=== PATIENT | male | born 1980 | race Caucasian/White ===

== ENCOUNTER 2017-03-19 19:54 | Inpatient (IN) | payer MEDICAID, OTHER ==
[~2017-03-19] VITALS: Ht 170.2 cm; Wt 68.3 kg
[~2017-03-19 19:54] MED LIST: ALBU8HFA4 IH; ASPI-1093 PO; DIVA500T35 PO; DSS100 PO; OMEP20 PO; QUET200T PO; VITAD1000 PO
[2017-03-19] MEDS ORDERED: DIPH50 PO (20:25)
[2017-03-19] MEDS ORDERED: FLUP5 PO (20:25)
[2017-03-19] MEDS ORDERED: BENZ1TAB10 PO (20:25)
[2017-03-19] MEDS ORDERED: LORazepam 2 MG TABLET PO PRN (21:00)
[2017-03-19] MEDS ORDERED: ZOLPIDEM TARTRATE 10 MG TABLET PO PRN ×2 (21:00)
[2017-03-19 21:10] VITALS: BP 117/77
[2017-03-19 21:44] VITALS: BP 115/88
[2017-03-19] MEDS: QUEtiapine FUMARATE 200 MG TABLET PO SCH (22:08)
[2017-03-19] MEDS ORDERED: -PHARMACY VACCINE NOTE- MISC ONE ×2 (22:15)
[2017-03-19] MEDS ORDERED: ALBUTEROL SULFATE HFA 90 MCG/PUFF 8 GM INHALER IH PRN (23:15)
[2017-03-20 08:25] LABS: BASOPHILS % (AUTO) 0.4 % (0.0-2.0); EOSINOPHILS % (AUTO) 2.7 % (1.0-6.0); HEMATOCRIT 49.4 % (41-53); HEMOGLOBIN 16.9 g/dL (13.5-17.5); LYMPHOCYTES # (AUTO) 2.2 K/uL (1.0-4.8); LYMPHOCYTES % (AUTO) 35.3 % (22.0-44.0); MEAN CORPUSCULAR HEMOGLOBIN 31.6 pg (26.0-34.0); MEAN CORPUSCULAR HGB CONC 34.3 G/dL (31.0-37.0); MEAN CORPUSCULAR VOLUME 92 fL (80-100); MONOCYTES # (AUTO) 0.5 K/uL (0.1-1.0); MONOCYTES % (AUTO) 7.4 % (2.0-9.0); NEUTROPHILS # (AUTO) 3.4 K/uL (1.8-7.7); NEUTROPHILS % (AUTO) 54.2 % (40.0-70.0); PLATELET COUNT (AUTO) 177 K/uL (150-450); RED BLOOD CELL COUNT(AUTO) 5.35 MIL/uL (4.50-5.90); WHITE BLOOD COUNT (AUTO) 6.3 K/uL (4.5-11.0)
[2017-03-20 08:31] VITALS: BP 134/65
[2017-03-20 08:35] LABS: HEMOGLOBIN A1C 5.1 % (4.5-6.2)
[2017-03-20] MEDS: FluPHENAZine HCL 5 MG TABLET PO SCH (08:35)
[2017-03-20] MEDS: DIVALPROEX SODIUM 500 MG DR TABLET PO SCH ×2 (08:35→16:48)
[2017-03-20] MEDS: BENZTROPINE MESYLATE 1 MG TABLET PO SCH (08:35)
[2017-03-20] MEDS: OMEPRAZOLE 20 MG CAPSULE PO SCH (08:35)
[2017-03-20] MEDS: DOCUSATE SODIUM 100 MG CAPSULE PO SCH (08:35)
[2017-03-20] MEDS: ASPIRIN 81 MG CHEWABLE TABLET PO SCH (08:35)
[2017-03-20] MEDS: LORazepam 2 MG TABLET PO PRN (08:36)
[2017-03-20] MEDS: CHOLECALCIFEROL (VIT D3) 1,000 UNITS TABLET PO SCH (08:36)
[2017-03-20 08:51] LABS: ALANINE AMINOTRANSFERASE 13 U/L (12-78); ALBUMIN 3.4 g/dL (3.4-5.0); ANION GAP 10 mmol/L (8-16); ASPARTATE AMINOTRANSFERASE 12 U/L (15-37); BILIRUBIN,TOTAL 0.4 mg/dL (0.1-1.0); CALCIUM, TOTAL 8.4 mg/dL (8.8-10.5); CARBON DIOXIDE 26 mmol/L (22-29); CHLORIDE 110 mmol/L (98-107); CHOL/HDL RATIO 2.3 (4.2-7.3); CREATININE 0.65 mg/dL (0.60-1.30); GLOMERULAR FILTR. RATE CALC > 60 mL/min (>60); POTASSIUM 4.2 mmol/L (3.5-5.1); SODIUM SERUM 146 mmol/L (136-145); THYROID STIMULATING HORMONE 1.64 uIU/mL (0.36-3.74); TOTAL PROTEIN, SERUM 6.3 g/dL (6.4-8.2); UREA NITROGEN, BLOOD 14 mg/dL (7-18); VALPROIC ACID 53 mcg/mL (50-100)
[2017-03-20 16:00] VITALS: BP 124/68
[2017-03-20] MEDS: QUEtiapine FUMARATE 200 MG TABLET PO SCH (20:14)
[2017-03-21 07:06] VITALS: BP 127/71
[2017-03-21 08:10] LABS: POTASSIUM 3.6 mmol/L (3.5-5.1)
[2017-03-21 08:42] VITALS: BP 108/67
[2017-03-21] MEDS: CHOLECALCIFEROL (VIT D3) 1,000 UNITS TABLET PO SCH (09:11)
[2017-03-21] MEDS: FluPHENAZine HCL 5 MG TABLET PO SCH (09:11)
[2017-03-21] MEDS: DOCUSATE SODIUM 100 MG CAPSULE PO SCH (09:12)
[2017-03-21] MEDS: DIVALPROEX SODIUM 500 MG DR TABLET PO SCH ×2 (09:12→16:26)
[2017-03-21] MEDS: OMEPRAZOLE 20 MG CAPSULE PO SCH (09:12)
[2017-03-21] MEDS: ASPIRIN 81 MG CHEWABLE TABLET PO SCH (09:12)
[2017-03-21] MEDS: BENZTROPINE MESYLATE 1 MG TABLET PO SCH (10:08)
[2017-03-21] MEDS: LORazepam 2 MG TABLET PO PRN (13:22)
[2017-03-21 16:04] VITALS: BP 112/73
[2017-03-21] MEDS: QUEtiapine FUMARATE 200 MG TABLET PO SCH (20:05)
[2017-03-22 06:30] VITALS: BP 108/73
[2017-03-22 08:05] VITALS: BP 104/59
[2017-03-22] MEDS: CHOLECALCIFEROL (VIT D3) 1,000 UNITS TABLET PO SCH (08:26)
[2017-03-22] MEDS: DOCUSATE SODIUM 100 MG CAPSULE PO SCH (08:26)
[2017-03-22] MEDS: DIVALPROEX SODIUM 500 MG DR TABLET PO SCH ×2 (08:26→16:14)
[2017-03-22] MEDS: OMEPRAZOLE 20 MG CAPSULE PO SCH (08:26)
[2017-03-22] MEDS: BENZTROPINE MESYLATE 1 MG TABLET PO SCH (08:26)
[2017-03-22] MEDS: ASPIRIN 81 MG CHEWABLE TABLET PO SCH (08:26)
[2017-03-22] MEDS: FluPHENAZine HCL 5 MG TABLET PO SCH (08:26)
[2017-03-22] MEDS: LORazepam 2 MG TABLET PO PRN (14:19)
[2017-03-22 16:00] VITALS: BP 112/70
[2017-03-22] MEDS: QUEtiapine FUMARATE 200 MG TABLET PO SCH (20:43)
[2017-03-23 05:20] VITALS: BP 105/68
[2017-03-23 08:20] VITALS: BP 120/79
[2017-03-23] MEDS: DIVALPROEX SODIUM 500 MG DR TABLET PO SCH ×2 (09:29→16:42)
[2017-03-23] MEDS: OMEPRAZOLE 20 MG CAPSULE PO SCH (09:29)
[2017-03-23] MEDS: FluPHENAZine HCL 5 MG TABLET PO SCH (09:30)
[2017-03-23] MEDS: NICOTINE 21 MG/24 HOUR PATCH TD SCH (09:30)
[2017-03-23] MEDS: ASPIRIN 81 MG CHEWABLE TABLET PO SCH (09:30)
[2017-03-23] MEDS: CHOLECALCIFEROL (VIT D3) 1,000 UNITS TABLET PO SCH (09:30)
[2017-03-23] MEDS: BENZTROPINE MESYLATE 1 MG TABLET PO SCH (09:30)
[2017-03-23] MEDS: DOCUSATE SODIUM 100 MG CAPSULE PO SCH (09:30)
[2017-03-23 16:08] VITALS: BP 116/75
[2017-03-23] MEDS: LORazepam 2 MG TABLET PO PRN (16:42)
[2017-03-23] MEDS: QUEtiapine FUMARATE 200 MG TABLET PO SCH (20:33)
[2017-03-24 05:27] VITALS: BP 119/63
[2017-03-24 08:28] VITALS: BP 113/73
[2017-03-24] MEDS: OMEPRAZOLE 20 MG CAPSULE PO SCH (08:54)
[2017-03-24] MEDS: BENZTROPINE MESYLATE 1 MG TABLET PO SCH (08:54)
[2017-03-24] MEDS: FluPHENAZine HCL 5 MG TABLET PO SCH (08:54)
[2017-03-24] MEDS: NICOTINE 21 MG/24 HOUR PATCH TD SCH (08:54)
[2017-03-24] MEDS: DOCUSATE SODIUM 100 MG CAPSULE PO SCH (08:54)
[2017-03-24] MEDS: CHOLECALCIFEROL (VIT D3) 1,000 UNITS TABLET PO SCH (08:54)
[2017-03-24] MEDS: ASPIRIN 81 MG CHEWABLE TABLET PO SCH (08:54)
[2017-03-24] MEDS: DIVALPROEX SODIUM 500 MG DR TABLET PO SCH (08:54)
== END 2017-03-24 13:00 | disposition home or self-care (01) | DRG 753 ==
LOC: B3A 21:44 → EDSTATUS 21:54
PROVIDERS: ADMIT Psychiatry & Neurology Psychiatry; ATTEND Psychiatry & Neurology Psychiatry
DX: F31.9 Bipolar disorder, unspecified (principal); E87.0 Hyperosmolality and hypernatremia; E55.9 Vitamin D deficiency, unspecified; E83.51 Hypocalcemia; I10 Essential (primary) hypertension; K21.9 Gastro-esophageal reflux disease without esophagitis; G47.00 Insomnia, unspecified; Z72.0 Tobacco use; Q23.9 Congenital malformation of aortic and mitral valves, unspecified
CPT/HCPCS: 82306; 83036; 84132; 84295; 84439; 84443

== ENCOUNTER 2017-04-13 15:42 | Emergency (ER) | payer MEDICAID, OTHER ==
[~2017-04-13] VITALS: Ht 170.2 cm; Wt 68.0 kg
[~2017-04-13 15:42] MED LIST changes: +BENZ1TAB10 PO; +DIPH50 PO; +FLUP5 PO
[2017-04-13] MEDS ORDERED: LORazepam 2 MG TABLET PO ONE (20:00)
[2017-04-13 20:42] VITALS: BP 110/65
== END 2017-04-13 21:07 | disposition home or self-care (01) ==
LOC: EMS 15:44
DX: F41.9 Anxiety disorder, unspecified (principal); F31.9 Bipolar disorder, unspecified; F20.9 Schizophrenia, unspecified; I10 Essential (primary) hypertension; F17.210 Nicotine dependence, cigarettes, uncomplicated; Z79.82 Long term (current) use of aspirin
CPT/HCPCS: 99284

== ENCOUNTER 2018-10-14 16:36 | Inpatient (IN) | payer MEDICAID, OTHER ==
[~2018-10-14] VITALS: Ht 170.2 cm; Wt 79.4 kg
[~2018-10-14 16:36] MED LIST changes: -ASPI-1093 PO; +ASPI-1182 PO; +DIVA-78 PO; -DIVA500T35 PO
[2018-10-14 17:39] LABS: BASOPHILS % (AUTO) 0.4 % (0.0-2.0); EOSINOPHILS % (AUTO) 0.9 % (1.0-6.0); HEMATOCRIT 52.9 % (41-53); HEMOGLOBIN 18.7 g/dL (13.5-17.5); LYMPHOCYTES # (AUTO) 1.9 K/uL (1.0-4.8); LYMPHOCYTES % (AUTO) 21.3 % (22.0-44.0); MEAN CORPUSCULAR HEMOGLOBIN 31.5 pg (26.0-34.0); MEAN CORPUSCULAR HGB CONC 35.4 G/dL (31.0-37.0); MEAN CORPUSCULAR VOLUME 89 fL (80-100); MONOCYTES # (AUTO) 0.6 K/uL (0.1-1.0); MONOCYTES % (AUTO) 6.6 % (2.0-9.0); NEUTROPHILS # (AUTO) 6.3 K/uL (1.8-7.7); NEUTROPHILS % (AUTO) 70.8 % (40.0-70.0); PLATELET COUNT (AUTO) 228 K/uL (150-450); RED BLOOD CELL COUNT(AUTO) 5.94 MIL/uL (4.50-5.90); RED CELL DISTRIBUTION WIDTH 12.9 % (11.5-14.5)
[2018-10-14 18:00] LABS: AMPHET/METH SCREEN,URINE NEGATIVE (NEGATIVE); BARBITURATE SCREEN, URINE NEGATIVE (NEGATIVE); BENZODIAZEPINES SCREEN,URINE NEGATIVE (NEGATIVE); CANNABINOID SCREEN,URINE NEGATIVE (NEGATIVE); COCAINE SCREEN,URINE NEGATIVE (NEGATIVE); METHADONE SCREEN, URINE NEGATIVE (NEGATIVE); OPIATE SCREEN,URINE NEGATIVE (NEGATIVE)
[2018-10-14 18:00] LABS: ANION GAP 14 mmol/L (8-16); CALCIUM, TOTAL 9.3 mg/dL (8.8-10.5); CARBON DIOXIDE 21 mmol/L (22-29); CHLORIDE 105 mmol/L (98-107); CREATININE 0.74 mg/dL (0.60-1.30); GLOMERULAR FILTR. RATE CALC > 60 mL/min (>60); GLUCOSE,RANDOM 110 mg/dL (70-110); POTASSIUM 4.4 mmol/L (3.5-5.1); SODIUM SERUM 140 mmol/L (136-145); UREA NITROGEN, BLOOD 9 mg/dL (7-18)
[2018-10-14 18:03] LABS: PHENCYCLIDINE SCREEN,URINE NEGATIVE (NEGATIVE)
[2018-10-14 18:06] LABS: ALANINE AMINOTRANSFERASE 15 U/L (12-78); ALBUMIN 4.1 g/dL (3.4-5.0); ALKALINE PHOSPHATASE 76 U/L (46-116); ASPARTATE AMINOTRANSFERASE 22 U/L (15-37); BILIRUBIN,TOTAL 0.5 mg/dL (0.1-1.0); TOTAL PROTEIN, SERUM 7.9 g/dL (6.4-8.2)
[2018-10-14] MEDS ORDERED: ZOLPIDEM TARTRATE 10 MG TABLET PO PRN (19:45)
[2018-10-14 20:51] LABS: HEMOGLOBIN A1C 5.1 % (4.5-6.2)
[2018-10-14 20:59] LABS: CHOL/HDL RATIO 2.4 (4.2-7.3); THYROID STIMULATING HORMONE 0.85 uIU/mL (0.36-3.74)
[2018-10-14 21:22] LABS: FREE T4 (FREE THYROXINE) 1.1 ng/dL (0.76-1.46)
[2018-10-14 21:35] VITALS: BP 130/91
[2018-10-15 10:50] VITALS: BP 131/78
[2018-10-15] MEDS: NICOTINE 21 MG/24 HOUR PATCH TD SCH (13:23)
[2018-10-15 16:48] VITALS: BP 123/81
[2018-10-15] MEDS: QUEtiapine FUMARATE 200 MG TABLET PO SCH (20:35)
[2018-10-15] MEDS ORDERED: BENZOCAINE/MENTHOL LOZENGE MM PRN (23:00)
[2018-10-15] MEDS ORDERED: MAG HYDROX/AL HYDROX/SIMETH ES 30 ML SUSPENSION UDCUP PO PRN (23:00)
[2018-10-15] MEDS ORDERED: MAGNESIUM HYDROXIDE SUSPENSION 30 ML UDCUP PO PRN (23:00)
[2018-10-15] MEDS ORDERED: IBUPROFEN 600 MG TABLET PO PRN (23:00)
[2018-10-15] MEDS ORDERED: ONDANSETRON HCL 4 MG TABLET PO PRN (23:00)
[2018-10-15] MEDS ORDERED: ACETAMINOPHEN 325 MG TABLET PO PRN (23:00)
[2018-10-15] MEDS ORDERED: PETROLATUM,WHITE 71 GM JELLY TP PRN (23:00)
[2018-10-15] MEDS ORDERED: CloNIDine HCL 0.1 MG TABLET PO PRN (23:00)
[2018-10-15] MEDS ORDERED: BACITRACIN 28.4 GM OINTMENT TP PRN (23:00)
[2018-10-15] MEDS ORDERED: LOPERAMIDE HCL 2 MG CAPSULE PO PRN (23:00)
[2018-10-15] MEDS ORDERED: ALBUTEROL SULFATE HFA 90 MCG/PUFF 8 GM INHALER IH PRN (23:00)
[2018-10-16] MEDS: CHOLECALCIFEROL (VIT D3) 1,000 UNITS TABLET PO SCH (09:00)
[2018-10-16] MEDS: DIVALPROEX SODIUM 500 MG DR TABLET PO SCH ×2 (09:00→16:54)
[2018-10-16] MEDS: OMEPRAZOLE 20 MG CAPSULE PO SCH (09:00)
[2018-10-16] MEDS: ASPIRIN 81 MG EC TABLET PO SCH (09:00)
[2018-10-16] MEDS: NICOTINE 21 MG/24 HOUR PATCH TD SCH (09:00)
[2018-10-16] MEDS: DOCUSATE SODIUM 100 MG CAPSULE PO SCH (09:00)
[2018-10-16 10:44] VITALS: BP 120/70
[2018-10-16 20:38] VITALS: BP 125/72
[2018-10-16] MEDS: QUEtiapine FUMARATE 200 MG TABLET PO SCH (20:39)
[2018-10-17 03:00] VITALS: BP 121/67
[2018-10-17] MEDS: DOCUSATE SODIUM 100 MG CAPSULE PO SCH (09:30)
[2018-10-17] MEDS: OMEPRAZOLE 20 MG CAPSULE PO SCH (09:30)
[2018-10-17] MEDS: CHOLECALCIFEROL (VIT D3) 1,000 UNITS TABLET PO SCH (09:30)
[2018-10-17] MEDS: ASPIRIN 81 MG EC TABLET PO SCH (09:30)
[2018-10-17] MEDS: NICOTINE 21 MG/24 HOUR PATCH TD SCH (09:32)
[2018-10-17] MEDS: DIVALPROEX SODIUM 500 MG DR TABLET PO SCH ×2 (09:33→16:05)
[2018-10-17 09:59] VITALS: BP 118/68
[2018-10-17 19:55] VITALS: BP 133/82
[2018-10-17] MEDS: QUEtiapine FUMARATE 200 MG TABLET PO SCH (20:32)
[2018-10-18] MEDS: LORazepam 2 MG TABLET PO PRN (08:48)
[2018-10-18] MEDS: HALOPERIDOL 5 MG TABLET PO PRN (08:48)
[2018-10-18] MEDS: ASPIRIN 81 MG EC TABLET PO SCH (08:52)
[2018-10-18] MEDS: CHOLECALCIFEROL (VIT D3) 1,000 UNITS TABLET PO SCH (08:52)
[2018-10-18] MEDS: DIVALPROEX SODIUM 500 MG DR TABLET PO SCH ×2 (08:52→16:44)
[2018-10-18] MEDS: OMEPRAZOLE 20 MG CAPSULE PO SCH (08:52)
[2018-10-18] MEDS: DOCUSATE SODIUM 100 MG CAPSULE PO SCH (08:52)
[2018-10-18] MEDS: NICOTINE 21 MG/24 HOUR PATCH TD SCH (09:03)
[2018-10-18 10:39] VITALS: BP 101/84
[2018-10-18] MEDS: QUEtiapine FUMARATE 200 MG TABLET PO SCH (20:05)
[2018-10-18 21:39] VITALS: BP 111/72
[2018-10-19] MEDS: ASPIRIN 81 MG EC TABLET PO SCH (09:08)
[2018-10-19] MEDS: OMEPRAZOLE 20 MG CAPSULE PO SCH (09:08)
[2018-10-19] MEDS: DIVALPROEX SODIUM 500 MG DR TABLET PO SCH ×2 (09:08→16:27)
[2018-10-19] MEDS: DOCUSATE SODIUM 100 MG CAPSULE PO SCH (09:09)
[2018-10-19] MEDS: CHOLECALCIFEROL (VIT D3) 1,000 UNITS TABLET PO SCH (09:09)
[2018-10-19] MEDS: NICOTINE 21 MG/24 HOUR PATCH TD SCH (09:10)
[2018-10-19 13:50] VITALS: BP 117/89
[2018-10-19 17:35] VITALS: BP 120/67
[2018-10-19] MEDS: LORazepam 2 MG TABLET PO PRN (20:27)
[2018-10-19] MEDS: QUEtiapine FUMARATE 200 MG TABLET PO SCH (20:27)
[2018-10-19] MEDS: HALOPERIDOL 5 MG TABLET PO PRN (20:27)
[2018-10-20 08:00] VITALS: BP 120/81
[2018-10-20] MEDS: DOCUSATE SODIUM 100 MG CAPSULE PO SCH (10:01)
[2018-10-20] MEDS: CHOLECALCIFEROL (VIT D3) 1,000 UNITS TABLET PO SCH (10:02)
[2018-10-20] MEDS: DIVALPROEX SODIUM 500 MG DR TABLET PO SCH ×2 (10:02→16:40)
[2018-10-20] MEDS: OMEPRAZOLE 20 MG CAPSULE PO SCH (10:02)
[2018-10-20] MEDS: ASPIRIN 81 MG EC TABLET PO SCH (10:03)
[2018-10-20] MEDS: NICOTINE 21 MG/24 HOUR PATCH TD SCH (10:05)
[2018-10-20] MEDS: HALOPERIDOL 5 MG TABLET PO PRN (16:41)
[2018-10-20] MEDS: LORazepam 2 MG TABLET PO PRN (16:41)
[2018-10-20 19:25] VITALS: BP 125/75
[2018-10-20] MEDS: QUEtiapine FUMARATE 200 MG TABLET PO SCH (20:24)
[2018-10-21] MEDS: DOCUSATE SODIUM 100 MG CAPSULE PO SCH (08:48)
[2018-10-21] MEDS: NICOTINE 21 MG/24 HOUR PATCH TD SCH (08:48)
[2018-10-21] MEDS: ASPIRIN 81 MG EC TABLET PO SCH (08:48)
[2018-10-21] MEDS: DIVALPROEX SODIUM 500 MG DR TABLET PO SCH (08:48)
[2018-10-21] MEDS: OMEPRAZOLE 20 MG CAPSULE PO SCH (08:48)
[2018-10-21] MEDS: CHOLECALCIFEROL (VIT D3) 1,000 UNITS TABLET PO SCH (08:48)
[2018-10-21] MEDS: LORazepam 2 MG TABLET PO PRN (08:49)
[2018-10-21 10:13] VITALS: BP 117/79
== END 2018-10-21 14:30 | disposition home or self-care (01) | DRG 750 ==
LOC: EMS 16:37 → 3EI 20:20
PROVIDERS: ADMIT Psychiatry & Neurology Psychiatry; ATTEND Psychiatry & Neurology Psychiatry
DX: F25.9 Schizoaffective disorder, unspecified (principal); F17.210 Nicotine dependence, cigarettes, uncomplicated; F41.9 Anxiety disorder, unspecified; I10 Essential (primary) hypertension; Z79.82 Long term (current) use of aspirin; Z56.0 Unemployment, unspecified; Z79.899 Other long term (current) drug therapy
CPT/HCPCS: 83036; 84439; 84443; 99406; G0480

== ENCOUNTER 2019-09-03 15:35 | Inpatient (IN) | payer MEDICAID, OTHER ==
[~2019-09-03] VITALS: Ht 170.2 cm; Wt 80.7 kg
[~2019-09-03 15:35] MED LIST changes: -ALBU8HFA4 IH; -BENZ1TAB10 PO; +CHOL100018 PO; -DIPH50 PO; -FLUP5 PO; -VITAD1000 PO
[2019-09-03] MEDS ORDERED: LORazepam 2 MG TABLET PO ONE (16:15)
[2019-09-03] MEDS ORDERED: HALOPERIDOL 5 MG TABLET PO ONE (16:15)
[2019-09-03 16:21] LABS: BASOPHILS % (AUTO) 0.2 % (0.0-2.0); EOSINOPHILS % (AUTO) 1.2 % (1.0-6.0); HEMOGLOBIN 18.1 g/dL (13.5-17.5); LYMPHOCYTES # (AUTO) 1.4 K/uL (1.0-4.8); LYMPHOCYTES % (AUTO) 17.1 % (22.0-44.0); MEAN CORPUSCULAR HEMOGLOBIN 31.7 pg (26.0-34.0); MEAN CORPUSCULAR HGB CONC 34.8 G/dL (31.0-37.0); MEAN CORPUSCULAR VOLUME 91 fL (80-100); MONOCYTES # (AUTO) 0.4 K/uL (0.1-1.0); MONOCYTES % (AUTO) 5.2 % (2.0-9.0); NEUTROPHILS # (AUTO) 6.1 K/uL (1.8-7.7); NEUTROPHILS % (AUTO) 76.3 % (40.0-70.0); PLATELET COUNT (AUTO) 198 K/uL (150-450); RED BLOOD CELL COUNT(AUTO) 5.72 MIL/uL (4.50-5.90); RED CELL DISTRIBUTION WIDTH 12.8 % (11.5-14.5)
[2019-09-03 16:28] LABS: ANION GAP 8 mmol/L (8-16); CALCIUM, TOTAL 8.7 mg/dL (8.8-10.5); CARBON DIOXIDE 28 mmol/L (22-29); CHLORIDE 105 mmol/L (98-107); CREATININE 0.94 mg/dL (0.60-1.30); GLOMERULAR FILTR. RATE CALC > 60 mL/min (>60); GLUCOSE,RANDOM 107 mg/dL (70-110); SODIUM SERUM 141 mmol/L (136-145); UREA NITROGEN, BLOOD 9 mg/dL (7-18)
[2019-09-03 16:34] LABS: ALANINE AMINOTRANSFERASE 12 U/L (12-78); ALKALINE PHOSPHATASE 69 U/L (46-116); ASPARTATE AMINOTRANSFERASE 21 U/L (15-37); BILIRUBIN,TOTAL 0.4 mg/dL (0.1-1.0); TOTAL PROTEIN, SERUM 7.5 g/dL (6.4-8.2)
[2019-09-03 16:50] LABS: VALPROIC ACID < 3 mcg/mL (50-100)
[2019-09-03 17:20] LABS: AMPHET/METH SCREEN,URINE NEGATIVE (NEGATIVE); BARBITURATE SCREEN, URINE NEGATIVE (NEGATIVE); BENZODIAZEPINES SCREEN,URINE NEGATIVE (NEGATIVE); CANNABINOID SCREEN,URINE NEGATIVE (NEGATIVE); COCAINE SCREEN,URINE NEGATIVE (NEGATIVE); METHADONE SCREEN, URINE NEGATIVE (NEGATIVE); OPIATE SCREEN,URINE NEGATIVE (NEGATIVE)
[2019-09-03 17:23] LABS: PHENCYCLIDINE SCREEN,URINE NEGATIVE (NEGATIVE)
[2019-09-03] MEDS ORDERED: ZOLPIDEM TARTRATE 10 MG TABLET PO PRN (17:45)
[2019-09-03] MEDS: DIVALPROEX SODIUM 500 MG DR TABLET PO SCH (19:50)
[2019-09-03 21:05] VITALS: BP 128/75
[2019-09-03] MEDS: QUEtiapine FUMARATE 200 MG TABLET PO SCH (21:09)
[2019-09-04 08:12] VITALS: BP 97/60
[2019-09-04] MEDS: DIVALPROEX SODIUM 500 MG DR TABLET PO SCH ×2 (09:07→16:47)
[2019-09-04] MEDS: LORazepam 2 MG TABLET PO PRN (14:28)
[2019-09-04] MEDS: HALOPERIDOL 5 MG TABLET PO PRN (14:28)
[2019-09-04 19:33] VITALS: BP 137/84
[2019-09-04] MEDS: QUEtiapine FUMARATE 200 MG TABLET PO SCH (20:23)
[2019-09-04] MEDS ORDERED: MAG HYDROX/AL HYDROX/SIMETH ES 30 ML SUSPENSION UDCUP PO PRN (21:15)
[2019-09-04] MEDS ORDERED: MAGNESIUM HYDROXIDE SUSPENSION 30 ML UDCUP PO PRN (21:15)
[2019-09-04] MEDS ORDERED: PETROLATUM,WHITE 28 GM JELLY TP PRN (21:15)
[2019-09-04] MEDS ORDERED: BENZOCAINE/MENTHOL LOZENGE MM PRN (21:15)
[2019-09-04] MEDS ORDERED: ALBUTEROL SULFATE HFA 90 MCG/PUFF 8 GM INHALER IH PRN (21:15)
[2019-09-04] MEDS ORDERED: LOPERAMIDE HCL 2 MG CAPSULE PO PRN (21:15)
[2019-09-04] MEDS ORDERED: DOCUSATE SODIUM 100 MG CAPSULE PO PRN (21:15)
[2019-09-04] MEDS ORDERED: IBUPROFEN 600 MG TABLET PO PRN (21:15)
[2019-09-04] MEDS ORDERED: ONDANSETRON HCL 4 MG TABLET PO PRN (21:15)
[2019-09-04] MEDS ORDERED: OMEPRAZOLE 20 MG CAPSULE PO PRN (21:15)
[2019-09-04] MEDS ORDERED: ACETAMINOPHEN 325 MG TABLET PO PRN (21:15)
[2019-09-04] MEDS ORDERED: BACITRACIN 28.4 GM OINTMENT TP PRN (21:15)
[2019-09-04] MEDS ORDERED: CloNIDine HCL 0.1 MG TABLET PO PRN (21:15)
[2019-09-05] MEDS: ASPIRIN 81 MG EC TABLET PO SCH (09:43)
[2019-09-05] MEDS: DIVALPROEX SODIUM 500 MG DR TABLET PO SCH ×2 (09:43→17:15)
[2019-09-05] MEDS: CHOLECALCIFEROL (VIT D3) 1,000 UNITS TABLET PO SCH (09:44)
[2019-09-05 10:00] VITALS: BP 112/54
[2019-09-05] MEDS: LORazepam 2 MG TABLET PO PRN (13:16)
[2019-09-05] MEDS: HALOPERIDOL 5 MG TABLET PO PRN (13:16)
[2019-09-05 16:30] VITALS: BP 119/63
[2019-09-05] MEDS: QUEtiapine FUMARATE 200 MG TABLET PO SCH (20:19)
[2019-09-06] MEDS: LORazepam 2 MG TABLET PO PRN ×2 (07:48→18:27)
[2019-09-06] MEDS: CHOLECALCIFEROL (VIT D3) 1,000 UNITS TABLET PO SCH (07:48)
[2019-09-06] MEDS: DIVALPROEX SODIUM 500 MG DR TABLET PO SCH ×2 (07:48→16:38)
[2019-09-06] MEDS: HALOPERIDOL 5 MG TABLET PO PRN ×2 (07:48→18:27)
[2019-09-06] MEDS: ASPIRIN 81 MG EC TABLET PO SCH (07:49)
[2019-09-06 10:36] VITALS: BP 107/76
[2019-09-06 17:56] VITALS: BP 111/63
[2019-09-06] MEDS: QUEtiapine FUMARATE 200 MG TABLET PO SCH (20:53)
[2019-09-07] MEDS: CHOLECALCIFEROL (VIT D3) 1,000 UNITS TABLET PO SCH (07:44)
[2019-09-07] MEDS: ASPIRIN 81 MG EC TABLET PO SCH (07:44)
[2019-09-07] MEDS: DIVALPROEX SODIUM 500 MG DR TABLET PO SCH ×2 (07:44→17:33)
[2019-09-07] MEDS: LORazepam 2 MG TABLET PO PRN (07:45)
[2019-09-07] MEDS: HALOPERIDOL 5 MG TABLET PO PRN (07:45)
[2019-09-07 08:02] VITALS: BP 110/84
[2019-09-07 16:00] VITALS: BP 114/81
[2019-09-07] MEDS: QUEtiapine FUMARATE 200 MG TABLET PO SCH (21:10)
[2019-09-08] MEDS: ASPIRIN 81 MG EC TABLET PO SCH (09:28)
[2019-09-08] MEDS: LORazepam 2 MG TABLET PO PRN (09:28)
[2019-09-08] MEDS: CHOLECALCIFEROL (VIT D3) 1,000 UNITS TABLET PO SCH (09:28)
[2019-09-08] MEDS: DIVALPROEX SODIUM 500 MG DR TABLET PO SCH ×2 (09:28→17:28)
[2019-09-08 10:06] VITALS: BP 120/86
[2019-09-08 16:38] VITALS: BP 109/79
[2019-09-08] MEDS: QUEtiapine FUMARATE 200 MG TABLET PO SCH (21:14)
[2019-09-09 08:45] VITALS: BP 122/85
[2019-09-09] MEDS: DIVALPROEX SODIUM 500 MG DR TABLET PO SCH ×2 (09:22→16:15)
[2019-09-09] MEDS: LORazepam 2 MG TABLET PO PRN ×2 (09:22→18:08)
[2019-09-09] MEDS: ASPIRIN 81 MG EC TABLET PO SCH (09:23)
[2019-09-09] MEDS: CHOLECALCIFEROL (VIT D3) 1,000 UNITS TABLET PO SCH (09:23)
[2019-09-09 17:01] VITALS: BP 113/77
[2019-09-09] MEDS ORDERED: NICOTINE 14 MG/24 HOUR PATCH TD ONE (20:00)
[2019-09-09] MEDS: QUEtiapine FUMARATE 200 MG TABLET PO SCH (20:23)
[2019-09-10 08:00] VITALS: BP 121/89
[2019-09-10] MEDS: CHOLECALCIFEROL (VIT D3) 1,000 UNITS TABLET PO SCH (08:01)
[2019-09-10] MEDS: LORazepam 2 MG TABLET PO PRN ×3 (08:01→16:30)
[2019-09-10] MEDS: DIVALPROEX SODIUM 500 MG DR TABLET PO SCH ×2 (08:01→16:15)
[2019-09-10] MEDS: ASPIRIN 81 MG EC TABLET PO SCH (08:01)
[2019-09-10] MEDS: NICOTINE 14 MG/24 HOUR PATCH TD SCH (08:06)
[2019-09-10] MEDS: HALOPERIDOL 5 MG TABLET PO PRN ×3 (12:32→21:30)
[2019-09-10 17:25] VITALS: BP 138/67
[2019-09-10] MEDS: QUEtiapine FUMARATE 200 MG TABLET PO SCH (20:20)
[2019-09-11 08:25] VITALS: BP 134/68
[2019-09-11] MEDS: ASPIRIN 81 MG EC TABLET PO SCH (10:29)
[2019-09-11] MEDS: DIVALPROEX SODIUM 500 MG DR TABLET PO SCH ×2 (10:29→16:59)
[2019-09-11] MEDS: CHOLECALCIFEROL (VIT D3) 1,000 UNITS TABLET PO SCH (10:29)
[2019-09-11] MEDS: NICOTINE 14 MG/24 HOUR PATCH TD SCH (10:30)
[2019-09-11 16:13] VITALS: BP 150/84
[2019-09-11] MEDS: QUEtiapine FUMARATE 200 MG TABLET PO SCH (21:03)
[2019-09-12] MEDS: NICOTINE 14 MG/24 HOUR PATCH TD SCH (08:12)
[2019-09-12] MEDS: LORazepam 2 MG TABLET PO PRN (08:13)
[2019-09-12] MEDS: ASPIRIN 81 MG EC TABLET PO SCH (08:13)
[2019-09-12] MEDS: DIVALPROEX SODIUM 500 MG DR TABLET PO SCH (08:13)
[2019-09-12] MEDS: CHOLECALCIFEROL (VIT D3) 1,000 UNITS TABLET PO SCH (08:13)
[2019-09-12 09:36] VITALS: BP 108/82
[2019-09-12] MEDS ORDERED: BENZ1TAB10 PO (12:00)
[2019-09-12] MEDS ORDERED: FLUP10 PO (12:00)
[2019-09-12] MEDS ORDERED: DIVA-78 PO (12:00)
[2019-09-12] MEDS ORDERED: CHOL100018 PO (13:59)
[2019-09-12] MEDS ORDERED: ASPI-1182 PO (14:06)
[2019-09-12] MEDS ORDERED: FluPHENAZine HCL 1 MG TABLET PO SCH (17:00)
[2019-09-12] MEDS ORDERED: BENZTROPINE MESYLATE 1 MG TABLET PO SCH (17:00)
[2019-09-12] MEDS ORDERED: DIVALPROEX SODIUM 500 MG DR TABLET PO SCH (21:00)
[2019-09-12] MEDS ORDERED: FluPHENAZine HCL 10 MG TABLET PO SCH (21:00)
[2019-09-13] MEDS ORDERED: DIVALPROEX SODIUM 500 MG DR TABLET PO SCH (09:00)
== END 2019-09-12 21:36 | disposition home or self-care (01) | DRG 885 ==
LOC: EMS 15:38 → 3EC 18:34
PROVIDERS: ADMIT Psychiatry & Neurology Psychiatry; ATTEND Psychiatry & Neurology Psychiatry
DX: F25.9 Schizoaffective disorder, unspecified (principal); F17.200 Nicotine dependence, unspecified, uncomplicated; F31.9 Bipolar disorder, unspecified; F41.9 Anxiety disorder, unspecified; F60.0 Paranoid personality disorder; G47.00 Insomnia, unspecified; I10 Essential (primary) hypertension; Z56.0 Unemployment, unspecified; Z71.6 Tobacco abuse counseling
CPT/HCPCS: G0480

== ENCOUNTER 2020-03-08 11:09 | Emergency (ER) | payer MEDICAID, OTHER ==
[~2020-03-08] VITALS: Ht 170.2 cm; Wt 68.2 kg
[~2020-03-08 11:09] MED LIST changes: +ASPI-1111 PO; -ASPI-1182 PO; +BENZ1TAB10 PO; -DSS100 PO; +FLUP10 PO; -OMEP20 PO
[2020-03-08] MEDS ORDERED: DIPH50CA35 PO (11:13)
[2020-03-08 12:21] LABS: BASOPHILS % (AUTO) 0.4 % (0.0-2.0); EOSINOPHILS % (AUTO) 0.8 % (1.0-6.0); HEMATOCRIT 50.4 % (41-53); LYMPHOCYTES # (AUTO) 1.2 K/uL (1.0-4.8); LYMPHOCYTES % (AUTO) 16.9 % (22.0-44.0); MEAN CORPUSCULAR HEMOGLOBIN 31.8 pg (26.0-34.0); MEAN CORPUSCULAR HGB CONC 35.6 G/dL (31.0-37.0); MEAN CORPUSCULAR VOLUME 89 fL (80-100); MONOCYTES # (AUTO) 0.4 K/uL (0.1-1.0); MONOCYTES % (AUTO) 5.5 % (2.0-9.0); NEUTROPHILS # (AUTO) 5.6 K/uL (1.8-7.7); NEUTROPHILS % (AUTO) 76.4 % (40.0-70.0); PLATELET COUNT (AUTO) 180 K/uL (150-450); RED BLOOD CELL COUNT(AUTO) 5.65 MIL/uL (4.50-5.90); RED CELL DISTRIBUTION WIDTH 12.6 % (11.5-14.5)
[2020-03-08 12:39] LABS: ANION GAP 15 mmol/L (8-16); CALCIUM, TOTAL 8.8 mg/dL (8.8-10.5); CARBON DIOXIDE 21 mmol/L (22-29); CHLORIDE 105 mmol/L (98-107); CREATININE 0.88 mg/dL (0.60-1.30); GLOMERULAR FILTR. RATE CALC > 60 mL/min (>60); GLUCOSE,RANDOM 140 mg/dL (70-110); POTASSIUM 3.7 mmol/L (3.5-5.1); SODIUM SERUM 141 mmol/L (136-145); UREA NITROGEN, BLOOD 10 mg/dL (7-18)
[2020-03-08 12:45] LABS: ALANINE AMINOTRANSFERASE 16 U/L (12-78); ALBUMIN 4.1 g/dL (3.4-5.0); ALKALINE PHOSPHATASE 70 U/L (46-116); ASPARTATE AMINOTRANSFERASE 15 U/L (15-37); BILIRUBIN,TOTAL 0.5 mg/dL (0.1-1.0); TOTAL PROTEIN, SERUM 7.7 g/dL (6.4-8.2)
[2020-03-08 13:41] VITALS: BP 132/77
== END 2020-03-08 13:43 | disposition home or self-care (01) ==
LOC: EMS 11:10
DX: F81.9 Developmental disorder of scholastic skills, unspecified (principal); F69 Unspecified disorder of adult personality and behavior; F17.210 Nicotine dependence, cigarettes, uncomplicated; F41.9 Anxiety disorder, unspecified; F31.9 Bipolar disorder, unspecified; F20.9 Schizophrenia, unspecified; I10 Essential (primary) hypertension; Z79.82 Long term (current) use of aspirin
CPT/HCPCS: 36415; 80053; 85025; 99283; G0480

== ENCOUNTER 2022-04-02 12:24 | Inpatient (IN) | payer MEDICAID, OTHER ==
[~2022-04-02] VITALS: Ht 170.2 cm; Wt 72.1 kg
[~2022-04-02 12:24] MED LIST changes: -ASPI-1111 PO; +ASPI-1444 PO; -BENZ1TAB10 PO; +BENZ1TAB96 PO; -CHOL100018 PO; +CHOL25TA4 PO; +DIPH50CA35 PO; +DIVA-112 PO; -DIVA-78 PO; -FLUP10 PO
[2022-04-02 12:58] LABS: BASOPHILS % (AUTO) 0.3 % (0.0-2.0); EOSINOPHILS % (AUTO) 1.2 % (1.0-6.0); HEMATOCRIT 49.6 % (41-53); HEMOGLOBIN 17.3 g/dL (13.5-17.5); MEAN CORPUSCULAR HEMOGLOBIN 31.5 pg (26.0-34.0); MEAN CORPUSCULAR HGB CONC 34.8 G/dL (31.0-37.0); MEAN CORPUSCULAR VOLUME 90 fL (80-100); MONOCYTES # (AUTO) 0.5 K/uL (0.1-1.0); MONOCYTES % (AUTO) 6.5 % (2.0-9.0); NEUTROPHILS # (AUTO) 4.5 K/uL (1.8-7.7); PLATELET COUNT (AUTO) 200 K/uL (150-450); RED BLOOD CELL COUNT(AUTO) 5.49 MIL/uL (4.50-5.90); RED CELL DISTRIBUTION WIDTH 12.9 % (11.5-14.5)
[2022-04-02 13:07] LABS: ANION GAP 10 mmol/L (8-16); CALCIUM, TOTAL 9.1 mg/dL (8.8-10.5); CARBON DIOXIDE 24 mmol/L (22-29); CHLORIDE 106 mmol/L (98-107); CREATININE 0.71 mg/dL (0.60-1.30); GLOMERULAR FILTR. RATE CALC > 60 mL/min (>60); GLUCOSE,RANDOM 137 mg/dL (70-110); POTASSIUM 3.5 mmol/L (3.5-5.1); SODIUM SERUM 140 mmol/L (136-145); UREA NITROGEN, BLOOD 10 mg/dL (7-18)
[2022-04-02 13:14] LABS: ALANINE AMINOTRANSFERASE 19 U/L (12-78); ALKALINE PHOSPHATASE 73 U/L (46-116); ASPARTATE AMINOTRANSFERASE 14 U/L (15-37); BILIRUBIN,TOTAL 0.6 mg/dL (0.1-1.0); TOTAL PROTEIN, SERUM 7.1 g/dL (6.4-8.2); VALPROIC ACID < 3 mcg/mL (50-100)
[2022-04-02 13:43] LABS: AMPHET/METH SCREEN,URINE NEGATIVE (NEGATIVE); BARBITURATE SCREEN, URINE NEGATIVE (NEGATIVE); BENZODIAZEPINES SCREEN,URINE NEGATIVE (NEGATIVE); CANNABINOID SCREEN,URINE NEGATIVE (NEGATIVE); COCAINE SCREEN,URINE NEGATIVE (NEGATIVE); METHADONE SCREEN, URINE NEGATIVE (NEGATIVE); OPIATE SCREEN,URINE NEGATIVE (NEGATIVE)
[2022-04-02 13:45] LABS: PHENCYCLIDINE SCREEN,URINE NEGATIVE (NEGATIVE)
[2022-04-02] MEDS ORDERED: ZOLPIDEM TARTRATE 10 MG TABLET PO PRN (14:30)
[2022-04-02] MEDS ORDERED: LORazepam 1 MG TABLET PO ONE (14:30)
[2022-04-02 15:19] LABS: COVID AG,FIA SOURCE NASOPHARYNGEAL
[2022-04-02] MEDS: LORazepam 2 MG TABLET PO PRN (20:52)
[2022-04-02] MEDS ORDERED: ONDANSETRON HCL 4 MG TABLET PO ONE (21:00)
[2022-04-02] MEDS: HALOPERIDOL 5 MG TABLET PO PRN (21:02)
[2022-04-02 22:29] VITALS: BP 132/84
[2022-04-03 08:34] VITALS: BP 118/82
[2022-04-03] MEDS: LORazepam 2 MG TABLET PO PRN ×2 (12:08→15:58)
[2022-04-03] MEDS: HALOPERIDOL 5 MG TABLET PO PRN (15:58)
[2022-04-03 16:05] VITALS: BP 97/67
[2022-04-03] MEDS: DIVALPROEX SODIUM 250 MG DR TABLET PO SCH (17:51)
[2022-04-03] MEDS: FluPHENAZine HCL 5 MG TABLET PO SCH (21:02)
[2022-04-03] MEDS: BENZTROPINE MESYLATE 2 MG TABLET PO SCH (21:02)
[2022-04-03] MEDS ORDERED: BENZOCAINE/MENTHOL LOZENGE PO PRN (21:15)
[2022-04-03] MEDS ORDERED: OMEPRAZOLE 20 MG CAPSULE PO PRN (21:15)
[2022-04-03] MEDS ORDERED: LOPERAMIDE HCL 2 MG CAPSULE PO PRN (21:15)
[2022-04-03] MEDS ORDERED: DOCUSATE SODIUM 100 MG CAPSULE PO PRN (21:15)
[2022-04-03] MEDS ORDERED: MAG HYDROX/AL HYDROX/SIMETH ES 30 ML SUSPENSION UDCUP PO PRN (21:15)
[2022-04-03] MEDS ORDERED: BACITRACIN 28 GM OINTMENT TP PRN (21:15)
[2022-04-03] MEDS ORDERED: MAGNESIUM HYDROXIDE SUSPENSION 30 ML UDCUP PO PRN (21:15)
[2022-04-03] MEDS ORDERED: PETROLATUM,WHITE 28 GM JELLY TP PRN (21:15)
[2022-04-03] MEDS ORDERED: ACETAMINOPHEN 325 MG TABLET PO PRN (21:15)
[2022-04-03] MEDS ORDERED: ONDANSETRON HCL 4 MG TABLET PO PRN (21:15)
[2022-04-03] MEDS ORDERED: CloNIDine HCL 0.1 MG TABLET PO PRN (21:15)
[2022-04-03] MEDS ORDERED: ALBUTEROL SULFATE HFA 90 MCG/PUFF 8 GM INHALER IH PRN (21:15)
[2022-04-03] MEDS ORDERED: IBUPROFEN 600 MG TABLET PO PRN (21:15)
[2022-04-04 08:15] VITALS: BP 109/70
[2022-04-04 08:27] LABS: CHOL/HDL RATIO 2.5 (4.2-7.3)
[2022-04-04] MEDS: CHOLECALCIFEROL (VIT D3) 1,000 UNITS [25 MCG] TABLET PO SCH (09:15)
[2022-04-04] MEDS: ASPIRIN 81 MG DR TABLET PO SCH (09:15)
[2022-04-04] MEDS: DIVALPROEX SODIUM 250 MG DR TABLET PO SCH ×2 (09:16→16:22)
[2022-04-04] MEDS: HALOPERIDOL 5 MG TABLET PO PRN ×2 (15:43→20:31)
[2022-04-04 16:33] VITALS: BP 110/71
[2022-04-04] MEDS: FluPHENAZine HCL 5 MG TABLET PO SCH (21:16)
[2022-04-04] MEDS: BENZTROPINE MESYLATE 2 MG TABLET PO SCH (21:16)
[2022-04-05 00:33] VITALS: BP 115/79
[2022-04-05 08:00] VITALS: BP 116/74
[2022-04-05] MEDS: DIVALPROEX SODIUM 250 MG DR TABLET PO SCH ×2 (09:07→17:46)
[2022-04-05] MEDS: ASPIRIN 81 MG DR TABLET PO SCH (09:07)
[2022-04-05] MEDS: CHOLECALCIFEROL (VIT D3) 1,000 UNITS [25 MCG] TABLET PO SCH (09:09)
[2022-04-05] MEDS: HALOPERIDOL 5 MG TABLET PO PRN ×2 (15:44→20:35)
[2022-04-05 16:08] VITALS: BP 108/66
[2022-04-05] MEDS: LORazepam 2 MG TABLET PO PRN (17:46)
[2022-04-05] MEDS: BENZTROPINE MESYLATE 2 MG TABLET PO SCH (20:35)
[2022-04-05] MEDS: FluPHENAZine HCL 5 MG TABLET PO SCH (20:35)
[2022-04-06] MEDS: ASPIRIN 81 MG DR TABLET PO SCH (09:07)
[2022-04-06] MEDS: CHOLECALCIFEROL (VIT D3) 1,000 UNITS [25 MCG] TABLET PO SCH (09:07)
[2022-04-06] MEDS: DIVALPROEX SODIUM 250 MG DR TABLET PO SCH ×2 (09:08→16:14)
[2022-04-06 09:22] VITALS: BP 132/76
[2022-04-06 16:00] VITALS: BP 140/78
[2022-04-06] MEDS: HALOPERIDOL 5 MG TABLET PO PRN ×2 (16:14→20:36)
[2022-04-06] MEDS: LORazepam 2 MG TABLET PO PRN (17:22)
[2022-04-06] MEDS: BENZTROPINE MESYLATE 2 MG TABLET PO SCH (20:36)
[2022-04-06] MEDS: FluPHENAZine HCL 5 MG TABLET PO SCH (20:36)
[2022-04-07] MEDS: ASPIRIN 81 MG DR TABLET PO SCH (09:26)
[2022-04-07] MEDS: DIVALPROEX SODIUM 250 MG DR TABLET PO SCH ×2 (09:27→16:13)
[2022-04-07] MEDS: CHOLECALCIFEROL (VIT D3) 1,000 UNITS [25 MCG] TABLET PO SCH (09:27)
[2022-04-07 09:39] VITALS: BP 116/70
[2022-04-07] MEDS: HALOPERIDOL 5 MG TABLET PO PRN ×2 (15:34→20:16)
[2022-04-07 17:03] VITALS: BP 119/79
[2022-04-07] MEDS: FluPHENAZine HCL 5 MG TABLET PO SCH (20:16)
[2022-04-07] MEDS: BENZTROPINE MESYLATE 2 MG TABLET PO SCH (21:32)
[2022-04-07 22:55] VITALS: BP 132/83
[2022-04-08 06:38] LABS: COVID AG,FIA SOURCE NASAL SWAB
[2022-04-08] MEDS: DIVALPROEX SODIUM 250 MG DR TABLET PO SCH ×2 (08:24→16:18)
[2022-04-08] MEDS: CHOLECALCIFEROL (VIT D3) 1,000 UNITS [25 MCG] TABLET PO SCH (08:24)
[2022-04-08] MEDS: ASPIRIN 81 MG DR TABLET PO SCH (08:25)
[2022-04-08 08:54] VITALS: BP 147/77
[2022-04-08 16:24] VITALS: BP 121/79
[2022-04-08] MEDS: FluPHENAZine HCL 5 MG TABLET PO SCH (20:40)
[2022-04-08] MEDS: BENZTROPINE MESYLATE 2 MG TABLET PO SCH (20:40)
[2022-04-09] MEDS ORDERED: HALOPERIDOL LACTATE 5 MG/ML VIAL ONE (06:40)
[2022-04-09] MEDS ORDERED: HALOPERIDOL LACTATE 5 MG/ML VIAL IM ONE (06:45)
[2022-04-09] MEDS ORDERED: LORazepam 2 MG/ML VIAL IM ONE (06:45)
[2022-04-09 08:30] VITALS: BP 133/80
[2022-04-09] MEDS: ASPIRIN 81 MG DR TABLET PO SCH (08:44)
[2022-04-09] MEDS: DIVALPROEX SODIUM 250 MG DR TABLET PO SCH ×2 (08:44→16:14)
[2022-04-09] MEDS: CHOLECALCIFEROL (VIT D3) 1,000 UNITS [25 MCG] TABLET PO SCH (08:44)
[2022-04-09 16:00] VITALS: BP 124/70
[2022-04-09] MEDS: FluPHENAZine HCL 5 MG TABLET PO SCH (20:02)
[2022-04-09] MEDS: BENZTROPINE MESYLATE 2 MG TABLET PO SCH (20:03)
[2022-04-09] MEDS ORDERED: QUET200T PO (22:59)
[2022-04-09] MEDS ORDERED: DIVA-112 PO (23:00)
[2022-04-10 08:11] VITALS: BP 124/79
[2022-04-10] MEDS: ASPIRIN 81 MG DR TABLET PO SCH (08:29)
[2022-04-10] MEDS: DIVALPROEX SODIUM 250 MG DR TABLET PO SCH (08:29)
[2022-04-10] MEDS: CHOLECALCIFEROL (VIT D3) 1,000 UNITS [25 MCG] TABLET PO SCH (08:29)
== END 2022-04-10 09:30 | disposition home or self-care (01) | DRG 750 ==
LOC: EMS 12:24 → 3EI 14:22
PROVIDERS: ADMIT Psychiatry & Neurology Psychiatry; ATTEND Psychiatry & Neurology Psychiatry
DX: F25.9 Schizoaffective disorder, unspecified (principal); T82.590A Other mechanical complication of surgically created arteriovenous fistula, initial encounter; I10 Essential (primary) hypertension; E55.9 Vitamin D deficiency, unspecified; F17.210 Nicotine dependence, cigarettes, uncomplicated; F41.9 Anxiety disorder, unspecified; Z20.822 Contact with and (suspected) exposure to COVID-19; K21.9 Gastro-esophageal reflux disease without esophagitis; Z56.0 Unemployment, unspecified; Z91.14 Patient's other noncompliance with medication regimen; Z79.82 Long term (current) use of aspirin
CPT/HCPCS: 80053; 80061; 80164; 85025; 99285; G0480; J1630; J2060; Q0162

== ENCOUNTER 2023-07-26 20:39 | Inpatient (IN) | payer MEDICAID, OTHER ==
[~2023-07-26] VITALS: Ht 170.2 cm; Wt 70.8 kg
[~2023-07-26 20:39] MED LIST changes: -ASPI-1444 PO; -BENZ1TAB96 PO; -CHOL25TA4 PO; -DIPH50CA35 PO
[2023-07-26 21:12] LABS: BASOPHILS % (AUTO) 0.6 % (0.0-2.0); EOSINOPHILS % (AUTO) 0.5 % (1.0-6.0); HEMATOCRIT 50.7 % (41-53); LYMPHOCYTES # (AUTO) 1.9 K/uL (1.0-4.8); LYMPHOCYTES % (AUTO) 21.7 % (22.0-44.0); MEAN CORPUSCULAR HEMOGLOBIN 32.5 pg (26.0-34.0); MEAN CORPUSCULAR HGB CONC 35.5 G/dL (31.0-37.0); MEAN CORPUSCULAR VOLUME 92 fL (80-100); MONOCYTES # (AUTO) 0.6 K/uL (0.1-1.0); MONOCYTES % (AUTO) 6.6 % (2.0-9.0); NEUTROPHILS # (AUTO) 6.3 K/uL (1.8-7.7); NEUTROPHILS % (AUTO) 70.6 % (40.0-70.0); PLATELET COUNT (AUTO) 214 K/uL (150-450); RED BLOOD CELL COUNT(AUTO) 5.54 MIL/uL (4.50-5.90)
[2023-07-26 21:21] LABS: PH,URINE DRUG SCREEN 5.5 (5.0-8.0)
[2023-07-26 21:23] LABS: ANION GAP 10 mmol/L (8-16); CALCIUM, TOTAL 9.1 mg/dL (8.8-10.5); CARBON DIOXIDE 26 mmol/L (22-29); CHLORIDE 101 mmol/L (98-107); CREATININE 0.88 mg/dL (0.60-1.30); GLOMERULAR FILTR. RATE CALC > 60 mL/min (>60); GLUCOSE,RANDOM 143 mg/dL (70-110); POTASSIUM 3.8 mmol/L (3.5-5.1); SODIUM SERUM 137 mmol/L (136-145); UREA NITROGEN, BLOOD 11 mg/dL (7-18)
[2023-07-26 21:27] LABS: ALCOHOL, URINE DRUG SCREEN NEGATIVE (NEGATIVE); AMPHET/METH SCREEN,URINE NEGATIVE (NEGATIVE); BARBITURATE SCREEN, URINE NEGATIVE (NEGATIVE); BENZODIAZEPINES SCREEN,URINE NEGATIVE (NEGATIVE); CANNABINOID SCREEN,URINE NEGATIVE (NEGATIVE); COCAINE SCREEN,URINE NEGATIVE (NEGATIVE); METHADONE SCREEN, URINE NEGATIVE (NEGATIVE); OPIATE SCREEN,URINE NEGATIVE (NEGATIVE); PHENCYCLIDINE SCREEN,URINE NEGATIVE (NEGATIVE)
[2023-07-26 21:29] LABS: ALANINE AMINOTRANSFERASE 21 U/L (12-78); ALBUMIN 4.2 g/dL (3.4-5.0); ALKALINE PHOSPHATASE 68 U/L (46-116); ASPARTATE AMINOTRANSFERASE 20 U/L (15-37); BILIRUBIN,TOTAL 0.5 mg/dL (0.1-1.0)
[2023-07-26 21:53] LABS: ALCOHOL, BLOOD (SERUM) < 3 mg/dL (0-10)
[2023-07-26 21:58] LABS: VALPROIC ACID < 3 mcg/mL (50-100)
[2023-07-26] MEDS ORDERED: HALOPERIDOL 5 MG TABLET PO ONE (23:00)
[2023-07-26 23:12] LABS: COVID AG,FIA SOURCE NASAL SWAB
[2023-07-26 23:21] LABS: SARS-COV2 (COVID) ANTIGEN,FIA Negative (Negative)
[2023-07-27] MEDS ORDERED: LORazepam 2 MG TABLET PO PRN
[2023-07-27] MEDS ORDERED: HALOPERIDOL 5 MG TABLET PO PRN
[2023-07-27 03:19] VITALS: BP 102/80; PULSE 91; RESP 18; TEMP 98.5
[2023-07-27] MEDS ORDERED: MAG HYDROX/ALUMINUM HYD/SIMETH ES 30 ML SUSPENSION UDCUP PO PRN (05:00)
[2023-07-27] MEDS ORDERED: DOCUSATE SODIUM 100 MG CAPSULE PO PRN (05:00)
[2023-07-27] MEDS ORDERED: MAGNESIUM HYDROXIDE SUSPENSION 30 ML UDCUP PO PRN (05:00)
[2023-07-27] MEDS ORDERED: PETROLATUM,WHITE 28 GM JELLY TP PRN (05:00)
[2023-07-27] MEDS ORDERED: CloNIDine HCL 0.1 MG TABLET PO PRN (05:00)
[2023-07-27] MEDS ORDERED: OMEPRAZOLE 20 MG CAPSULE PO PRN (05:00)
[2023-07-27] MEDS ORDERED: BACITRACIN 28 GM OINTMENT TP PRN (05:00)
[2023-07-27] MEDS ORDERED: ACETAMINOPHEN 325 MG TABLET PO PRN (05:00)
[2023-07-27] MEDS ORDERED: ALBUTEROL SULFATE HFA 90 MCG/PUFF 8 GM INHALER IH PRN (05:00)
[2023-07-27] MEDS ORDERED: IBUPROFEN 600 MG TABLET PO PRN (05:00)
[2023-07-27] MEDS ORDERED: BENZOCAINE/MENTHOL LOZENGE PO PRN (05:00)
[2023-07-27] MEDS ORDERED: ONDANSETRON HCL 4 MG TABLET PO PRN (05:00)
[2023-07-27] MEDS ORDERED: LOPERAMIDE HCL 2 MG CAPSULE PO PRN (05:00)
[2023-07-27 10:02] VITALS: BP 115/83; PULSE 70; RESP 18; TEMP 97.5
[2023-07-27] MEDS: NICOTINE 21 MG/24 HOUR PATCH TD PRN (12:39)
[2023-07-27 20:52] VITALS: BP 127/84; PULSE 68; RESP 18; TEMP 98.1
[2023-07-27] MEDS: DIVALPROEX SODIUM 500 MG DR TABLET PO SCH (20:56)
[2023-07-27] MEDS: QUEtiapine FUMARATE 200 MG TABLET PO SCH (20:56)
[2023-07-28 09:19] VITALS: BP 107/73; PULSE 84; RESP 18; TEMP 98
[2023-07-28] MEDS: NICOTINE 21 MG/24 HOUR PATCH TD PRN (13:34)
[2023-07-28] MEDS: QUEtiapine FUMARATE 200 MG TABLET PO SCH (20:51)
[2023-07-28] MEDS: DIVALPROEX SODIUM 500 MG DR TABLET PO SCH (20:51)
[2023-07-28 21:10] VITALS: BP 118/83; PULSE 81; RESP 18; TEMP 98
[2023-07-28] MEDS: ZOLPIDEM TARTRATE 10 MG TABLET PO PRN (23:13)
[2023-07-29 09:47] VITALS: BP 140/90; PULSE 74; RESP 17; TEMP 98.1
[2023-07-29] MEDS: NICOTINE 21 MG/24 HOUR PATCH TD PRN (10:10)
[2023-07-29] MEDS: QUEtiapine FUMARATE 200 MG TABLET PO SCH (20:34)
[2023-07-29] MEDS: DIVALPROEX SODIUM 500 MG DR TABLET PO SCH (20:34)
[2023-07-29 21:54] VITALS: BP 117/71; PULSE 86; RESP 18; TEMP 97.3
[2023-07-30 09:42] VITALS: BP 151/91; PULSE 82; RESP 20; TEMP 98.2
[2023-07-30] MEDS: QUEtiapine FUMARATE 200 MG TABLET PO SCH (20:35)
[2023-07-30] MEDS: DIVALPROEX SODIUM 500 MG DR TABLET PO SCH (20:35)
[2023-07-30] MEDS: ZOLPIDEM TARTRATE 10 MG TABLET PO PRN (22:02)
[2023-07-30 22:05] VITALS: RESP 19
[2023-07-31] MEDS ORDERED: HALOPERIDOL LACTATE 5 MG/ML VIAL ONE (07:40)
[2023-07-31] MEDS ORDERED: LORazepam 2 MG/ML VIAL ONE (07:40)
[2023-07-31] MEDS ORDERED: DiphenhydrAMINE HCL 50 MG/ML VIAL ONE (07:40)
[2023-07-31] MEDS ORDERED: DiphenhydrAMINE HCL 50 MG/ML VIAL IM ONE (07:45)
[2023-07-31] MEDS ORDERED: HALOPERIDOL LACTATE 5 MG/ML VIAL IM ONE (07:45)
[2023-07-31] MEDS ORDERED: LORazepam 2 MG/ML VIAL IM ONE (07:45)
[2023-07-31 08:10] VITALS: BP 174/95; PULSE 96; RESP 18; TEMP 97.7
[2023-07-31] MEDS: DIVALPROEX SODIUM 500 MG DR TABLET PO SCH (20:42)
[2023-07-31] MEDS: QUEtiapine FUMARATE 200 MG TABLET PO SCH (20:43)
[2023-07-31 21:18] VITALS: RESP 18
[2023-08-01 08:03] VITALS: BP 140/98; PULSE 100; RESP 19; TEMP 97.6
[2023-08-01 20:22] VITALS: BP 130/77; PULSE 94; RESP 18; TEMP 98.1
[2023-08-01] MEDS: QUEtiapine FUMARATE 200 MG TABLET PO SCH (20:40)
[2023-08-01] MEDS: DIVALPROEX SODIUM 500 MG DR TABLET PO SCH (20:40)
[2023-08-01] MEDS: ZOLPIDEM TARTRATE 10 MG TABLET PO PRN (20:41)
[2023-08-02 08:42] VITALS: BP 111/73; PULSE 72; RESP 18; TEMP 97.6
[2023-08-02 20:24] VITALS: BP 120/76; PULSE 79; RESP 18; TEMP 98.1
[2023-08-02] MEDS: QUEtiapine FUMARATE 200 MG TABLET PO SCH (21:05)
[2023-08-02] MEDS: DIVALPROEX SODIUM 500 MG DR TABLET PO SCH (21:05)
[2023-08-03 08:32] VITALS: BP 117/84; PULSE 67; RESP 18; TEMP 97.2
[2023-08-03 20:49] VITALS: BP 117/81; PULSE 75; RESP 17; TEMP 98.3
[2023-08-03] MEDS: DIVALPROEX SODIUM 500 MG DR TABLET PO SCH (20:54)
[2023-08-03] MEDS: QUEtiapine FUMARATE 200 MG TABLET PO SCH (20:54)
[2023-08-04 10:19] VITALS: BP 127/81; PULSE 71; RESP 18; TEMP 97.5
== END 2023-08-04 13:15 | disposition home or self-care (01) | DRG 750 ==
LOC: EMS 20:41 → 3EI 07-27 → UNDOADMIN 07-27 00:01 → 3EI 07-27 00:02 → 3EC 07-31 05:35
PROVIDERS: ADMIT Psychiatry & Neurology Psychiatry; ATTEND Psychiatry & Neurology Psychiatry
DX: F25.0 Schizoaffective disorder, bipolar type (principal); R45.851 Suicidal ideations; Q27.30 Arteriovenous malformation, site unspecified; K21.9 Gastro-esophageal reflux disease without esophagitis; E55.9 Vitamin D deficiency, unspecified; G47.00 Insomnia, unspecified; Z20.822 Contact with and (suspected) exposure to COVID-19; F17.210 Nicotine dependence, cigarettes, uncomplicated; F41.9 Anxiety disorder, unspecified; I10 Essential (primary) hypertension; Z56.0 Unemployment, unspecified; Z86.73 Personal history of transient ischemic attack (TIA), and cerebral infarction without residual deficits
CPT/HCPCS: 80053; 80164; 80307; 85025; 99285; G0480; J1200; J1630; J2060

== ENCOUNTER 2023-09-05 13:43 | Emergency (ER) | payer MEDICAID, OTHER ==
[~2023-09-05] VITALS: Ht 170.2 cm; Wt 63.6 kg
[2023-09-05 13:45] VITALS: TEMP 98.1
[2023-09-05] MEDS ORDERED: IBUPROFEN 400 MG TABLET PO ONE (14:45)
[2023-09-05] MEDS ORDERED: IBUP-1506 PO (15:57)
[2023-09-05 16:00] VITALS: BP 127/84; PULSE 87; RESP 17
== END 2023-09-05 16:35 | disposition home or self-care (01) ==
LOC: EMS 13:45
DX: S09.90XA Unspecified injury of head, initial encounter (principal); F41.9 Anxiety disorder, unspecified; F31.9 Bipolar disorder, unspecified; I10 Essential (primary) hypertension; F20.9 Schizophrenia, unspecified; F17.210 Nicotine dependence, cigarettes, uncomplicated; Z98.890 Other specified postprocedural states; X58.XXXA Exposure to other specified factors, initial encounter; Y93.89 Activity, other specified; Y92.89 Other specified places as the place of occurrence of the external cause; Y99.8 Other external cause status
CPT/HCPCS: 99282; Z7502; Z7610

== ENCOUNTER 2024-02-22 11:57 | Inpatient (IN) | payer MEDICAID ==
[~2024-02-22] VITALS: Ht 170.2 cm; Wt 64.0 kg
[~2024-02-22 11:57] MED LIST changes: +IBUP-1506 PO
[2024-02-22] MEDS ORDERED: HALOPERIDOL 5 MG TABLET PO PRN (12:45)
[2024-02-22] MEDS ORDERED: QUET400T13 PO (12:47)
[2024-02-22 13:26] LABS: GLUCOMETER DEV NAME(LOC) POC.BV; POC SARS-COV2 AG, FIA NEGATIVE (NEGATIVE)
[2024-02-22 13:59] VITALS: BP 142/75; PULSE 94; RESP 18; TEMP 99; O2SAT 97
[2024-02-22] MEDS ORDERED: BACITRACIN 28 GM OINTMENT TP PRN (18:00)
[2024-02-22] MEDS ORDERED: MAGNESIUM HYDROXIDE SUSPENSION 30 ML UDCUP PO PRN (18:00)
[2024-02-22] MEDS ORDERED: LOPERAMIDE HCL 2 MG CAPSULE PO PRN (18:00)
[2024-02-22] MEDS ORDERED: CloNIDine HCL 0.1 MG TABLET PO PRN (18:00)
[2024-02-22] MEDS ORDERED: BENZOCAINE/MENTHOL LOZENGE PO PRN (18:00)
[2024-02-22] MEDS ORDERED: MAG HYDROX/ALUMINUM HYD/SIMETH ES 30 ML SUSPENSION UDCUP PO PRN (18:00)
[2024-02-22] MEDS ORDERED: ALBUTEROL SULFATE HFA 90 MCG/PUFF 8 GM INHALER IH PRN (18:00)
[2024-02-22] MEDS ORDERED: OMEPRAZOLE 20 MG CAPSULE PO PRN (18:00)
[2024-02-22] MEDS ORDERED: ACETAMINOPHEN 325 MG TABLET PO PRN (18:00)
[2024-02-22] MEDS ORDERED: PETROLATUM,WHITE 28 GM JELLY TP PRN (18:00)
[2024-02-22 20:46] VITALS: BP 135/75; PULSE 78; RESP 20; TEMP 97.9; O2SAT 97
[2024-02-23] MEDS: ZOLPIDEM TARTRATE 10 MG TABLET PO PRN (00:57)
[2024-02-23] MEDS: NICOTINE 21 MG/24 HOUR PATCH TD SCH (08:36)
[2024-02-23 08:39] LABS: BASOPHILS % (AUTO) 0.1 % (0.0-2.0); EOSINOPHILS % (AUTO) 2.1 % (1.0-6.0); HEMATOCRIT 48.7 % (41-53); HEMOGLOBIN 16.9 g/dL (13.5-17.5); LYMPHOCYTES % (AUTO) 24.9 % (22.0-44.0); MEAN CORPUSCULAR HEMOGLOBIN 31.6 pg (26.0-34.0); MEAN CORPUSCULAR HGB CONC 34.7 G/dL (31.0-37.0); MEAN CORPUSCULAR VOLUME 91 fL (80-100); MONOCYTES # (AUTO) 0.7 K/uL (0.1-1.0); MONOCYTES % (AUTO) 8.2 % (2.0-9.0); NEUTROPHILS # (AUTO) 5.2 K/uL (1.8-7.7); NEUTROPHILS % (AUTO) 64.7 % (40.0-70.0); PLATELET COUNT (AUTO) 200 K/uL (150-450); RED BLOOD CELL COUNT(AUTO) 5.35 MIL/uL (4.50-5.90); RED CELL DISTRIBUTION WIDTH 12.8 % (11.5-14.5); WHITE BLOOD COUNT (AUTO) 8.1 K/uL (4.5-11.0)
[2024-02-23 09:06] VITALS: BP 111/69; PULSE 87; RESP 16; TEMP 98.1; O2SAT 98
[2024-02-23 09:10] LABS: ALANINE AMINOTRANSFERASE 14 U/L (12-78); ALBUMIN 3.6 g/dL (3.4-5.0); ALKALINE PHOSPHATASE 63 U/L (46-116); ANION GAP 10 mmol/L (8-16); ASPARTATE AMINOTRANSFERASE 18 U/L (15-37); BILIRUBIN,TOTAL 0.9 mg/dL (0.1-1.0); CARBON DIOXIDE 26 mmol/L (22-29); CHLORIDE 104 mmol/L (98-107); CHOL/HDL RATIO 2.3 (4.2-7.3); CHOLESTEROL 134 mg/dL (131-200); CREATININE 0.66 mg/dL (0.60-1.30); FREE T4 (FREE THYROXINE) 1.09 ng/dL (0.76-1.46); GLOMERULAR FILTR. RATE CALC > 60 mL/min (>60); GLUCOSE,RANDOM 96 mg/dL (70-110); HDL CHOLESTEROL 58 mg/dL (40-60); LDL CHOL (CALC.) 65 mg/dL (0-130); POTASSIUM 4.2 mmol/L (3.5-5.1); SODIUM SERUM 140 mmol/L (136-145); T4 (THYROXINE) 7.1 mcg/dL (4.7-13.3); THYROID STIMULATING HORMONE 0.89 uIU/mL (0.36-3.74); TOTAL PROTEIN, SERUM 6.9 g/dL (6.4-8.2); TRIGLYCERIDES 54 mg/dL (15-150); UREA NITROGEN, BLOOD 14 mg/dL (7-18)
[2024-02-23 20:14] VITALS: BP 121/82; PULSE 80; RESP 16; TEMP 97.8; O2SAT 97
[2024-02-24 01:16] VITALS: BP 130/76; PULSE 88; RESP 18; TEMP 97.6; O2SAT 98
[2024-02-24] MEDS: IBUPROFEN 600 MG TABLET PO PRN (01:16)
[2024-02-24 08:28] LABS: APPEARANCE,URINE CLEAR (CLEAR); BILIRUBIN,URINE NEGATIVE (NEGATIVE); COLOR,URINE LIGHT YELLOW (YELLOW); GLUCOSE, URINE (UA) NEGATIVE (NEGATIVE); KETONES,URINE NEGATIVE (NEGATIVE); LEUKOCYTE ESTERASE ,URINE NEGATIVE (NEGATIVE); NITRATE,URINE NEGATIVE (NEGATIVE); OCCULT BLOOD,URINE NEGATIVE (NEGATIVE); PH,URINE 6.5 (5.0-8.0); PH,URINE DRUG SCREEN 6.5 (5.0-8.0); PROTEIN,URINE NEGATIVE (NEGATIVE); SPECIFIC GRAVITIY, URINE 1.008 (1.003-1.030); UROBILINOGEN,URINE <=1.0 mg/dL (<=1.0)
[2024-02-24 08:33] VITALS: BP 115/67; PULSE 78; RESP 18; TEMP 96.8; O2SAT 97
[2024-02-24 08:38] LABS: AMPHET/METH SCREEN,URINE NEGATIVE (NEGATIVE); BARBITURATE SCREEN, URINE NEGATIVE (NEGATIVE); BENZODIAZEPINES SCREEN,URINE NEGATIVE (NEGATIVE); CANNABINOID SCREEN,URINE NEGATIVE (NEGATIVE); COCAINE SCREEN,URINE NEGATIVE (NEGATIVE); METHADONE SCREEN, URINE NEGATIVE (NEGATIVE); OPIATE SCREEN,URINE NEGATIVE (NEGATIVE); PHENCYCLIDINE SCREEN,URINE NEGATIVE (NEGATIVE)
[2024-02-24 08:41] LABS: ALCOHOL, URINE DRUG SCREEN NEGATIVE (NEGATIVE)
[2024-02-24 20:10] VITALS: BP 110/69; PULSE 76; RESP 18; TEMP 97.7; O2SAT 98
[2024-02-25 08:15] VITALS: BP 108/71; PULSE 78; RESP 18; TEMP 96.7; O2SAT 97
[2024-02-25] MEDS: LORazepam 2 MG TABLET PO PRN (12:58)
[2024-02-25] MEDS: DIVALPROEX SODIUM 500 MG DR TABLET PO SCH (20:32)
[2024-02-25] MEDS: QUEtiapine FUMARATE 200 MG TABLET PO SCH (20:32)
[2024-02-26 08:31] VITALS: BP 111/71; PULSE 78; RESP 18; TEMP 98; O2SAT 100
[2024-02-26 20:16] VITALS: BP 113/69; PULSE 89; RESP 18; TEMP 98; O2SAT 95
[2024-02-27 08:19] VITALS: BP 117/72; PULSE 95; RESP 17; TEMP 97.7; O2SAT 98
[2024-02-27] MEDS ORDERED: DIVA-112 PO (12:31)
[2024-02-27] MEDS ORDERED: QUET200T30 PO (12:31)
[2024-02-27] MEDS ORDERED: ESCI-8 PO (12:31)
[2024-02-27] MEDS: ESCITALOPRAM OXALATE 10 MG TABLET PO SCH (12:44)
== END 2024-02-27 15:54 | disposition home or self-care (01) | DRG 750 ==
LOC: B2S 14:38
PROVIDERS: ADMIT Psychiatry & Neurology Psychiatry; ATTEND Psychiatry & Neurology Psychiatry
DX: F25.9 Schizoaffective disorder, unspecified (principal); F17.210 Nicotine dependence, cigarettes, uncomplicated; I10 Essential (primary) hypertension; Q27.30 Arteriovenous malformation, site unspecified; K21.9 Gastro-esophageal reflux disease without esophagitis; E55.9 Vitamin D deficiency, unspecified; G47.00 Insomnia, unspecified; Z86.73 Personal history of transient ischemic attack (TIA), and cerebral infarction without residual deficits; Z91.148 Patient's other noncompliance with medication regimen for other reason
CPT/HCPCS: 80053; 80061; 80307; 81003; 84436; 84439; 84443; 85025; 86592

== ENCOUNTER 2024-07-02 11:10 | Emergency (ER) | payer MEDICAID, OTHER ==
[~2024-07-02] VITALS: Ht 180.3 cm; Wt 81.8 kg
[~2024-07-02 11:10] MED LIST changes: -IBUP-1506 PO; -QUET200T PO
[2024-07-02 11:20] VITALS: TEMP 98.2
[2024-07-02 16:50] LABS: BASOPHILS % (AUTO) 0.2 % (0.0-2.0); EOSINOPHILS % (AUTO) 2.2 % (1.0-6.0); HEMOGLOBIN 17.1 g/dL (13.5-17.5); LYMPHOCYTES # (AUTO) 1.5 K/uL (1.0-4.8); LYMPHOCYTES % (AUTO) 19.6 % (22.0-44.0); MEAN CORPUSCULAR HGB CONC 34.8 G/dL (31.0-37.0); MEAN CORPUSCULAR VOLUME 92 fL (80-100); MONOCYTES # (AUTO) 0.4 K/uL (0.1-1.0); MONOCYTES % (AUTO) 4.5 % (2.0-9.0); NEUTROPHILS # (AUTO) 5.7 K/uL (1.8-7.7); NEUTROPHILS % (AUTO) 73.5 % (40.0-70.0); PLATELET COUNT (AUTO) 190 K/uL (150-450); RED BLOOD CELL COUNT(AUTO) 5.34 MIL/uL (4.50-5.90); RED CELL DISTRIBUTION WIDTH 12.7 % (11.5-14.5); WHITE BLOOD COUNT (AUTO) 7.8 K/uL (4.5-11.0)
[2024-07-02 16:57] LABS: ANION GAP 11 mmol/L (8-16); CALCIUM, TOTAL 8.8 mg/dL (8.8-10.5); CARBON DIOXIDE 24 mmol/L (22-29); CHLORIDE 105 mmol/L (98-107); CREATININE 0.64 mg/dL (0.60-1.30); GLOMERULAR FILTR. RATE CALC > 60 mL/min (>60); GLUCOSE,RANDOM 95 mg/dL (70-110); POTASSIUM 3.6 mmol/L (3.5-5.1); SODIUM SERUM 140 mmol/L (136-145); UREA NITROGEN, BLOOD 13 mg/dL (7-18)
[2024-07-02 17:06] LABS: ALANINE AMINOTRANSFERASE 8 U/L (12-78); ALBUMIN 3.7 g/dL (3.4-5.0); ALKALINE PHOSPHATASE 62 U/L (46-116); ASPARTATE AMINOTRANSFERASE 11 U/L (15-37); BILIRUBIN,TOTAL 0.4 mg/dL (0.1-1.0); TOTAL PROTEIN, SERUM 7.1 g/dL (6.4-8.2)
[2024-07-02 17:52] VITALS: BP 118/80; PULSE 70; RESP 18; O2SAT 97
== END 2024-07-02 17:59 | disposition home or self-care (01) ==
LOC: EMS 11:10
DX: R53.83 Other fatigue (principal); L98.9 Disorder of the skin and subcutaneous tissue, unspecified; F41.9 Anxiety disorder, unspecified; F31.9 Bipolar disorder, unspecified; F20.9 Schizophrenia, unspecified; I10 Essential (primary) hypertension; F17.210 Nicotine dependence, cigarettes, uncomplicated; Z98.890 Other specified postprocedural states
CPT/HCPCS: 80048; 80076; 83735; 85025; 99283

== ENCOUNTER 2024-07-16 11:21 | Emergency (ER) | payer OTHER ==
[~2024-07-16] VITALS: Ht 172.7 cm; Wt 68.2 kg
[2024-07-16 11:37] VITALS: TEMP 98.7
[2024-07-16] MEDS: DiphenhydrAMINE HCL 25 MG CAPSULE PO ONE (15:10)
[2024-07-16] MEDS: BENZTROPINE MESYLATE 2 MG TABLET PO ONE (15:11)
[2024-07-16 15:31] VITALS: BP 135/70; PULSE 72; RESP 18; O2SAT 99
[2024-07-16] MEDS ORDERED: DIPH50CA37 PO (15:52)
[2024-07-16] MEDS ORDERED: BENZ-247 PO (15:52)
== END 2024-07-16 16:06 | disposition home or self-care (01) ==
LOC: EMS 11:21
DX: F25.9 Schizoaffective disorder, unspecified (principal); G25.71 Drug induced akathisia; F41.9 Anxiety disorder, unspecified; F31.9 Bipolar disorder, unspecified; I10 Essential (primary) hypertension; F17.210 Nicotine dependence, cigarettes, uncomplicated; Z98.890 Other specified postprocedural states
CPT/HCPCS: 99283

== ENCOUNTER → 2024-10-21 | Emergency (ER) | payer OTHER ==
[~2024-10-21] VITALS: Ht 172.7 cm; Wt 68.2 kg
[~2024-10-21] MED LIST changes: +BENZ-247 PO; +BENZ2TAB84 PO; +DIPH50CA37 PO; +ESCI20TA87 PO; +QUET200T PO
[2024-10-21 18:37] LABS: COVID AG,FIA SOURCE NASAL SWAB
[2024-10-21 19:00] LABS: INFLUENZA TYPE A NEGATIVE FOR TYPE A (NEGATIVE); INFLUENZA TYPE B NEGATIVE FOR TYPE B (NEGATIVE)
[2024-10-21 19:01] LABS: SARS-COV2 (COVID) ANTIGEN,FIA Negative (Negative)
[2024-10-21 19:08] LABS: APPEARANCE,URINE CLEAR (CLEAR); BILIRUBIN,URINE NEGATIVE (NEGATIVE); COLOR,URINE LIGHT YELLOW (YELLOW); GLUCOSE, URINE (UA) NEGATIVE (NEGATIVE); KETONES,URINE NEGATIVE (NEGATIVE); LEUKOCYTE ESTERASE ,URINE NEGATIVE (NEGATIVE); NITRATE,URINE NEGATIVE (NEGATIVE); OCCULT BLOOD,URINE NEGATIVE (NEGATIVE); PROTEIN,URINE NEGATIVE (NEGATIVE); SPECIFIC GRAVITIY, URINE 1.015 (1.003-1.030)
[2024-10-21 19:15] LABS: AMPHET/METH SCREEN,URINE NEGATIVE (NEGATIVE); BARBITURATE SCREEN, URINE NEGATIVE (NEGATIVE); BENZODIAZEPINES SCREEN,URINE NEGATIVE (NEGATIVE); CANNABINOID SCREEN,URINE NEGATIVE (NEGATIVE); COCAINE SCREEN,URINE NEGATIVE (NEGATIVE); METHADONE SCREEN, URINE NEGATIVE (NEGATIVE); OPIATE SCREEN,URINE NEGATIVE (NEGATIVE); PHENCYCLIDINE SCREEN,URINE NEGATIVE (NEGATIVE)
[2024-10-21 19:21] LABS: ALCOHOL, URINE DRUG SCREEN NEGATIVE (NEGATIVE)
[2024-10-21 19:25] LABS: ANION GAP 9 mmol/L (8-16); CALCIUM, TOTAL 8.8 mg/dL (8.8-10.5); CARBON DIOXIDE 27 mmol/L (22-29); CHLORIDE 105 mmol/L (98-107); CREATININE 0.84 mg/dL (0.60-1.30); GLOMERULAR FILTR. RATE CALC > 60 mL/min (>60); GLUCOSE,RANDOM 117 mg/dL (70-110); POTASSIUM 3.6 mmol/L (3.5-5.1); SODIUM SERUM 141 mmol/L (136-145); UREA NITROGEN, BLOOD 11 mg/dL (7-18)
[2024-10-21 19:34] LABS: BASOPHILS % (AUTO) 0.8 % (0.0-2.0); HEMATOCRIT 52.5 % (41-53); HEMOGLOBIN 18.1 g/dL (13.5-17.5); LYMPHOCYTES % (AUTO) 25.8 % (22.0-44.0); MEAN CORPUSCULAR HEMOGLOBIN 31.8 pg (26.0-34.0); MEAN CORPUSCULAR HGB CONC 34.4 G/dL (31.0-37.0); MEAN CORPUSCULAR VOLUME 92 fL (80-100); MONOCYTES # (AUTO) 0.7 K/uL (0.1-1.0); MONOCYTES % (AUTO) 8.2 % (2.0-9.0); NEUTROPHILS % (AUTO) 63.2 % (40.0-70.0); PLATELET COUNT (AUTO) 224 K/uL (150-450); RED CELL DISTRIBUTION WIDTH 13.4 % (11.5-14.5); WHITE BLOOD COUNT (AUTO) 7.9 K/uL (4.5-11.0)
[2024-10-21 20:02] LABS: ALCOHOL, BLOOD (SERUM) < 3 mg/dL (0-10)
[2024-10-21 22:21] VITALS: BP 121/78; PULSE 71; RESP 18; TEMP 98.2; O2SAT 97
[2024-10-21] MEDS: DiphenhydrAMINE HCL 25 MG CAPSULE PO ONE (22:35)
[2024-10-21] MEDS: BENZTROPINE MESYLATE 2 MG TABLET PO ONE (22:35)
== END | disposition still patient (30) ==
LOC: EMS 17:42
DX: F25.0 Schizoaffective disorder, bipolar type (principal); K21.9 Gastro-esophageal reflux disease without esophagitis; F41.9 Anxiety disorder, unspecified; F12.90 Cannabis use, unspecified, uncomplicated; F32.A Depression, unspecified; F17.210 Nicotine dependence, cigarettes, uncomplicated; Z98.890 Other specified postprocedural states; Z20.822 Contact with and (suspected) exposure to COVID-19; Z79.899 Other long term (current) drug therapy
CPT/HCPCS: 99283; 87426; 80048; 81003; 85025; 87804; 36415; 80307; G0480

== ENCOUNTER 2025-03-19 10:06 | Inpatient (IN) | payer MEDICAID ==
[~2025-03-19] VITALS: Ht 170.2 cm; Wt 72.6 kg
[2025-03-19 13:00] VITALS: BP 114/87; PULSE 72; RESP 18; TEMP 98.2; O2SAT 100
[2025-03-19] MEDS ORDERED: PROMETHAZINE HCL 25 MG TABLET PO PRN (14:00)
[2025-03-19] MEDS ORDERED: MAG HYDROX/ALUMINUM HYD/SIMETH ES 30 ML SUSPENSION UDCUP PO PRN (14:00)
[2025-03-19] MEDS ORDERED: LORazepam 2 MG TABLET PO PRN (14:00)
[2025-03-19] MEDS ORDERED: ZOLPIDEM TARTRATE 10 MG TABLET PO PRN (14:00)
[2025-03-19] MEDS ORDERED: MAGNESIUM HYDROXIDE SUSPENSION 30 ML UDCUP PO PRN (14:00)
[2025-03-19] MEDS ORDERED: TUBERCULIN, PURIFIED PROTEIN DERIVATIVE 5 TU/0.1 ML SYRINGE ID ONE (14:00)
[2025-03-19] MEDS ORDERED: LOPERAMIDE HCL 2 MG CAPSULE PO PRN (14:00)
[2025-03-19] MEDS ORDERED: QUEtiapine FUMARATE 100 MG TABLET PO PRN ×2 (14:00)
[2025-03-19] MEDS ORDERED: ACETAMINOPHEN 325 MG TABLET PO PRN (14:00)
[2025-03-19] MEDS ORDERED: HydrOXYzine PAMOATE 50 MG CAPSULE PO PRN (14:00)
[2025-03-19 15:26] LABS: GLUCOMETER DEV NAME(LOC) POC.BV; POC SARS-COV2 AG, FIA NEGATIVE (NEGATIVE)
[2025-03-19] MEDS ORDERED: OLANZapine 5 MG RAPDIS TABLET PO PRN (15:30)
[2025-03-19] MEDS: THIAMINE 100 MG TABLET PO SCH (16:35)
[2025-03-19] MEDS: BENZTROPINE MESYLATE 2 MG TABLET PO SCH (16:36)
[2025-03-19] MEDS ORDERED: ACETAMINOPHEN 500 MG TABLET PO PRN (17:00)
[2025-03-19] MEDS ORDERED: GuaiFENesin/D-METHORPHAN [SUGAR-FREE] 200-20MG/10 ML SYRUP UDCUP PO PRN (17:30)
[2025-03-19 17:34] VITALS: BP 109/80; PULSE 73; RESP 17; TEMP 98.6; O2SAT 98
[2025-03-19] MEDS: GuaiFENesin/D-METHORPHAN [SUGAR-FREE] 200-20MG/10 ML SYRUP UDCUP PO PRN (17:52)
[2025-03-19 20:27] VITALS: BP 121/80; PULSE 73; RESP 16; TEMP 98.2; O2SAT 97
[2025-03-19] MEDS ORDERED: QUEtiapine FUMARATE 200 MG TABLET PO SCH (21:00)
[2025-03-19] MEDS ORDERED: DIVALPROEX SODIUM 500 MG ER TABLET PO SCH (21:00)
[2025-03-19] MEDS: MIRTAZAPINE 15 MG TABLET PO SCH (21:26)
[2025-03-19] MEDS: MELATONIN 5 MG TABLET PO SCH (21:27)
[2025-03-19] MEDS: OLANZapine 5 MG RAPDIS TABLET PO SCH (21:27)
[2025-03-19] MEDS: VALPROIC ACID 250 MG/5 ML SOLUTION UDCUP PO SCH (21:28)
[2025-03-20 07:54] LABS: HEMOGLOBIN A1C 4.9 % (3.8-5.6)
[2025-03-20 08:10] VITALS: BP 112/79; PULSE 64; RESP 18; TEMP 98.1; O2SAT 96
[2025-03-20 08:17] LABS: CHOL/HDL RATIO 2.5 (4.2-7.3)
[2025-03-20 08:18] LABS: FREE T4 (FREE THYROXINE) 0.95 ng/dL (0.76-1.46); THYROID STIMULATING HORMONE 0.66 uIU/mL (0.36-3.74)
[2025-03-20] MEDS: MULTIVITAMINS WITH MINERALS, THERAPEUTIC TABLET PO SCH (09:13)
[2025-03-20] MEDS: FOLIC ACID 1 MG TABLET PO SCH (09:13)
[2025-03-20] MEDS: NALTREXONE HCL 50 MG TABLET PO SCH (09:14)
[2025-03-20] MEDS: NICOTINE 21 MG/24 HOUR PATCH TD SCH (09:14)
[2025-03-20] MEDS ORDERED: MAGNESIUM HYDROXIDE SUSPENSION 30 ML UDCUP PO PRN (15:15)
[2025-03-20] MEDS ORDERED: LOPERAMIDE HCL 2 MG CAPSULE PO PRN (15:15)
[2025-03-20] MEDS ORDERED: PROMETHAZINE HCL 25 MG TABLET PO PRN (15:15)
[2025-03-20] MEDS ORDERED: MAG HYDROX/ALUMINUM HYD/SIMETH ES 30 ML SUSPENSION UDCUP PO PRN (15:15)
[2025-03-20] MEDS ORDERED: ACETAMINOPHEN 325 MG TABLET PO PRN (15:15)
[2025-03-20] MEDS ORDERED: TUBERCULIN, PURIFIED PROTEIN DERIVATIVE 5 TU/0.1 ML SYRINGE ID ONE (15:15)
[2025-03-20 20:36] VITALS: BP 117/81; PULSE 67; RESP 16; TEMP 99.3; O2SAT 100
[2025-03-20] MEDS: VALPROIC ACID 250 MG/5 ML SOLUTION UDCUP PO SCH (21:41)
[2025-03-20] MEDS: OLANZapine 10 MG RAPDIS TABLET PO SCH (21:44)
[2025-03-21 08:28] VITALS: BP 113/74; PULSE 60; RESP 18; TEMP 98.1; O2SAT 98
[2025-03-21 08:42] LABS: APPEARANCE,URINE CLEAR (CLEAR); BILIRUBIN,URINE NEGATIVE (NEGATIVE); COLOR,URINE YELLOW (YELLOW); GLUCOSE, URINE (UA) NEGATIVE (NEGATIVE); KETONES,URINE NEGATIVE (NEGATIVE); LEUKOCYTE ESTERASE ,URINE NEGATIVE (NEGATIVE); NITRATE,URINE NEGATIVE (NEGATIVE); OCCULT BLOOD,URINE NEGATIVE (NEGATIVE); PH,URINE 6.5 (5.0-8.0); PH,URINE DRUG SCREEN 6.5 (5.0-8.0); PROTEIN,URINE NEGATIVE (NEGATIVE); SPECIFIC GRAVITIY, URINE 1.013 (1.003-1.030); UROBILINOGEN,URINE <=1.0 mg/dL (<=1.0)
[2025-03-21 08:46] LABS: BASOPHILS % (AUTO) 0.4 % (0.0-2.0); EOSINOPHILS % (AUTO) 4.7 % (1.0-6.0); LYMPHOCYTES # (AUTO) 2.6 K/uL (1.0-4.8); LYMPHOCYTES % (AUTO) 40.4 % (22.0-44.0); MEAN CORPUSCULAR HEMOGLOBIN 31.5 pg (26.0-34.0); MEAN CORPUSCULAR HGB CONC 34.8 G/dL (31.0-37.0); MEAN CORPUSCULAR VOLUME 91 fL (80-100); MONOCYTES # (AUTO) 0.4 K/uL (0.1-1.0); MONOCYTES % (AUTO) 6.2 % (2.0-9.0); NEUTROPHILS # (AUTO) 3.1 K/uL (1.8-7.7); NEUTROPHILS % (AUTO) 48.3 % (40.0-70.0); PLATELET COUNT (AUTO) 195 K/uL (150-450); RED BLOOD CELL COUNT(AUTO) 5.41 MIL/uL (4.50-5.90); RED CELL DISTRIBUTION WIDTH 13.2 % (11.5-14.5); WHITE BLOOD COUNT (AUTO) 6.4 K/uL (4.5-11.0)
[2025-03-21 08:49] LABS: AMPHET/METH SCREEN,URINE NEGATIVE (NEGATIVE); BARBITURATE SCREEN, URINE NEGATIVE (NEGATIVE); BENZODIAZEPINES SCREEN,URINE NEGATIVE (NEGATIVE); CANNABINOID SCREEN,URINE NEGATIVE (NEGATIVE); COCAINE SCREEN,URINE NEGATIVE (NEGATIVE); METHADONE SCREEN, URINE NEGATIVE (NEGATIVE); OPIATE SCREEN,URINE NEGATIVE (NEGATIVE); PHENCYCLIDINE SCREEN,URINE NEGATIVE (NEGATIVE)
[2025-03-21 08:50] LABS: ALCOHOL, URINE DRUG SCREEN NEGATIVE (NEGATIVE)
[2025-03-21 09:01] LABS: ALBUMIN 3.2 g/dL (3.4-5.0); ALKALINE PHOSPHATASE 62 U/L (46-116); ANION GAP 8 mmol/L (8-16); ASPARTATE AMINOTRANSFERASE 11 U/L (15-37); BILIRUBIN,TOTAL 0.5 mg/dL (0.1-1.0); CALCIUM, TOTAL 8.5 mg/dL (8.8-10.5); CARBON DIOXIDE 28 mmol/L (22-29); CHLORIDE 110 mmol/L (98-107); CHOL/HDL RATIO 2.5 (4.2-7.3); CHOLESTEROL 125 mg/dL (131-200); GLOMERULAR FILTR. RATE CALC > 60 mL/min (>60); GLUCOSE,RANDOM 76 mg/dL (70-110); HDL CHOLESTEROL 50 mg/dL (40-60); LDL CHOL (CALC.) 61 mg/dL (0-130); POTASSIUM 3.9 mmol/L (3.5-5.1); SODIUM SERUM 146 mmol/L (136-145); THYROID STIMULATING HORMONE 0.46 uIU/mL (0.36-3.74); TOTAL PROTEIN, SERUM 6.1 g/dL (6.4-8.2); TRIGLYCERIDES 69 mg/dL (15-150); UREA NITROGEN, BLOOD 11 mg/dL (7-18)
[2025-03-21 09:03] LABS: ALANINE AMINOTRANSFERASE < 6 U/L (12-78)
[2025-03-21 20:10] VITALS: BP 115/75; PULSE 72; RESP 18; TEMP 98; O2SAT 97
[2025-03-22 08:22] VITALS: BP 117/85; PULSE 63; RESP 18; TEMP 97.3; O2SAT 97
[2025-03-22] MEDS ORDERED: BENZ2TAB84 PO (08:33)
[2025-03-22] MEDS ORDERED: NALT50TA33 PO (08:37)
[2025-03-22] MEDS ORDERED: VALP250S23 PO (08:38)
[2025-03-22] MEDS ORDERED: MIRT-89 PO (08:40)
[2025-03-22] MEDS ORDERED: OLAN10TA26 PO (08:41)
== END 2025-03-22 14:55 | disposition home or self-care (01) | DRG 750 ==
LOC: B2S 14:33
PROVIDERS: ADMIT Psychiatry & Neurology Psychiatry; ATTEND Psychiatry & Neurology Psychiatry
PROC: GZHZZZZ Group Psychotherapy (ICD-10-PCS; principal; 2025-03-19)
PROC: GZ58ZZZ Individual Psychotherapy, Cognitive-Behavioral (ICD-10-PCS; 2025-03-19)
PROC: GZ56ZZZ Individual Psychotherapy, Supportive (ICD-10-PCS; 2025-03-20)
DX: F20.0 Paranoid schizophrenia (principal); E46 Unspecified protein-calorie malnutrition; G81.91 Hemiplegia, unspecified affecting right dominant side; F70 Mild intellectual disabilities; Z20.822 Contact with and (suspected) exposure to COVID-19; J06.9 Acute upper respiratory infection, unspecified; F12.90 Cannabis use, unspecified, uncomplicated; I10 Essential (primary) hypertension; J40 Bronchitis, not specified as acute or chronic; T43.8X6A Underdosing of other psychotropic drugs, initial encounter; Y92.89 Other specified places as the place of occurrence of the external cause; Z68.25 Body mass index [BMI] 25.0-25.9, adult; Z86.73 Personal history of transient ischemic attack (TIA), and cerebral infarction without residual deficits; Z65.3 Problems related to other legal circumstances; Z63.9 Problem related to primary support group, unspecified; Z59.9 Problem related to housing and economic circumstances, unspecified; Z55.9 Problems related to education and literacy, unspecified; Z91.148 Patient's other noncompliance with medication regimen for other reason; Z79.899 Other long term (current) drug therapy; Z87.891 Personal history of nicotine dependence
CPT/HCPCS: 80053; 80061; 80307; 81003; 83036; 84439; 84443; 85025; 86592

== ENCOUNTER 2025-07-10 22:54 | Emergency (ER) | payer MEDICAID, OTHER ==
[~2025-07-10] VITALS: Ht 171.4 cm; Wt 72.5 kg
[~2025-07-10 22:54] MED LIST changes: -BENZ-247 PO; -DIPH50CA37 PO; -DIVA-112 PO; -ESCI20TA87 PO; +MIRT-89 PO; +NALT50TA33 PO; +OLAN10TA26 PO; -QUET200T PO; +VALP250S23 PO
[2025-07-10 23:09] VITALS: BP 107/75; PULSE 96; RESP 18; TEMP 98.4; O2SAT 96
[2025-07-10 23:37] LABS: RED CELL DISTRIBUTION WIDTH 13.1 % (11.5-14.5); WHITE BLOOD COUNT (AUTO) 7.7 K/uL (4.5-11.0)
[2025-07-10 23:41] LABS: PLATELET COUNT (AUTO) 188 K/uL (150-450); RED BLOOD CELL COUNT(AUTO) 5.52 MIL/uL (4.50-5.90)
[2025-07-10 23:43] LABS: CALCIUM, TOTAL 8.5 mg/dL (8.8-10.5); CREATININE 0.77 mg/dL (0.60-1.30); GLOMERULAR FILTR. RATE CALC > 60 mL/min (>60); GLUCOSE,RANDOM 167 mg/dL (70-110); SODIUM SERUM 142 mmol/L (136-145); UREA NITROGEN, BLOOD 14 mg/dL (7-18)
[2025-07-10 23:56] LABS: COVID AG,FIA SOURCE NASAL SWAB
[2025-07-11] LABS: APPEARANCE,URINE HAZY (CLEAR); GLUCOSE, URINE (UA) NEGATIVE (NEGATIVE); LEUKOCYTE ESTERASE ,URINE NEGATIVE (NEGATIVE); NITRATE,URINE NEGATIVE (NEGATIVE); OCCULT BLOOD,URINE NEGATIVE (NEGATIVE); PH,URINE DRUG SCREEN 7.0 (5.0-8.0); SPECIFIC GRAVITIY, URINE 1.027 (1.003-1.030)
[2025-07-11 00:01] LABS: SARS-COV2 (COVID) ANTIGEN,FIA Negative (Negative)
[2025-07-11 00:06] LABS: ALCOHOL, URINE DRUG SCREEN NEGATIVE (NEGATIVE); AMPHET/METH SCREEN,URINE NEGATIVE (NEGATIVE); BARBITURATE SCREEN, URINE NEGATIVE (NEGATIVE); CANNABINOID SCREEN,URINE NEGATIVE (NEGATIVE); COCAINE SCREEN,URINE NEGATIVE (NEGATIVE); METHADONE SCREEN, URINE NEGATIVE (NEGATIVE)
== END 2025-07-11 02:35 | disposition home or self-care (01) ==
LOC: EMS 22:54
DX: F41.9 Anxiety disorder, unspecified (principal); F32.A Depression, unspecified; F17.210 Nicotine dependence, cigarettes, uncomplicated; E87.6 Hypokalemia; F12.90 Cannabis use, unspecified, uncomplicated; F20.9 Schizophrenia, unspecified; I69.351 Hemiplegia and hemiparesis following cerebral infarction affecting right dominant side; Z03.89 Encounter for observation for other suspected diseases and conditions ruled out; Z79.899 Other long term (current) drug therapy; Z20.822 Contact with and (suspected) exposure to COVID-19
CPT/HCPCS: 99283; 87426; 80048; 81003; 85025; 36415; 80307; G0480

== ENCOUNTER 2025-09-04 20:14 | Emergency (ER) | payer OTHER ==
[~2025-09-04] VITALS: Ht 170.2 cm; Wt 72.0 kg
[2025-09-04 20:38] VITALS: TEMP 98.2
[2025-09-04 22:56] LABS: PLATELET COUNT (AUTO) 234 K/uL (150-450); RED BLOOD CELL COUNT(AUTO) 6.02 MIL/uL (4.50-5.90); RED CELL DISTRIBUTION WIDTH 13.1 % (11.5-14.5); WHITE BLOOD COUNT (AUTO) 10.3 K/uL (4.5-11.0)
[2025-09-04 23:11] LABS: CALCIUM, TOTAL 9.2 mg/dL (8.8-10.5); CREATININE 1.03 mg/dL (0.60-1.30); GLOMERULAR FILTR. RATE CALC > 60 mL/min (>60); GLUCOSE,RANDOM 96 mg/dL (70-110); SODIUM SERUM 139 mmol/L (136-145); UREA NITROGEN, BLOOD 13 mg/dL (7-18)
[2025-09-04 23:30] VITALS: BP 110/78; PULSE 88; RESP 18; O2SAT 98
== END 2025-09-04 23:52 | disposition home or self-care (01) ==
LOC: EMS 20:14
DX: F32.A Depression, unspecified (principal); F12.90 Cannabis use, unspecified, uncomplicated; F41.9 Anxiety disorder, unspecified; F17.210 Nicotine dependence, cigarettes, uncomplicated; Z79.899 Other long term (current) drug therapy
CPT/HCPCS: 99284; 80048; 85025; G0480